=== PATIENT | female | born 1980 ===

== ENCOUNTER 2017-06-22 06:56 | Observation (INO) | payer MEDICAID, OTHER ==
--- NOTE | 2017-06-22 07:28 | ED PDOC ---
Arrival/HPI - General Chief Complaint: Syncope Time Seen by Provider: 06/22/17 07:04 Historian: Patient - History of Present Illness Narrative History of Present Illness (Text): 06/22/17 07:21 A 37 year old female, whose past medical history includes anxiety, presents to the emergency department after a syncopal episode at around 5AM. The patient states that she felt dizzy, vomited, and passed out for a short period of time. The patient states that she is unsure if the symptoms are related to new medications she has been taking: Topamax She states that she is mildly nauseous , but has no complaint of pain. The patient denies fevers, chills, headache, chest pain, shortness of breath, dyspnea on exertion, cough, abdominal pain, diarrhea, back pain, neck pain, urinary/bowel changes, or any other complaint. PMD: Dr. Palomares 06/22/17 09:47 Time/Duration: Other (5 AM) Symptom Onset: Sudden Symptom Course: Improving Activities at Onset: Rest, Light Context: Home Past Medical History - Provider Review Nursing Documentation Reviewed: Yes - Cardiac Hx Cardiac Disorders: No - Pulmonary Hx Asthma: Yes - Neurological Hx Headaches: Yes Hx Vertigo: Yes - HEENT Hx HEENT Disorder: No - Renal Hx Renal Disorder: No - Endocrine/Metabolic Hx Hypothyroidism: Yes - Integumentary Hx Dermatological Disorder: No - Musculoskeletal/Rheumatological Hx Musculoskeletal Disorders: No - Gastrointestinal Hx Gastritis: Yes - Genitourinary/Gynecological Hx Genitourinary Disorders: No - Psychiatric Hx Anxiety: Yes Hx Substance Use: No - Surgical History Hx Hysterectomy: Yes Hx Thyroidectomy: Yes Hx Tonsillectomy: Yes Family/Social History - Physician Review Nursing Documentation Reviewed: Yes Family/Social History: No Known Family HX Smoking Status: Never Smoked Hx Alcohol Use: No Hx Substance Use: No Allergies/Home Meds Allergies/Adverse Reactions: Allergies acetaminophen [From Percocet] Allergy (Verified 06/22/17 07:12) VOMITING morphine Allergy (Verified 06/22/17 07:12) VOMITING oxycodone [From Percocet] Allergy (Verified 06/22/17 07:12) VOMITING Home Medications: Home Meds Medication Instructions Recorded Confirmed Unobtainable 06/22/17 06/22/17 Review of Systems - Physician Review All systems were reviewed & negative as marked: Yes - Review of Systems Constitutional: absent: Fevers, Night Sweats ENT: absent: Sore Throat Respiratory: absent: SOB, Cough Cardiovascular: Syncope. absent: Chest Pain, [place] Gastrointestinal: Nausea, Vomiting. absent: Abdominal Pain, Stool Changes Genitourinary Female: absent: Urine Output Changes Musculoskeletal: absent: Back Pain, Neck Pain Neurological: Dizziness. absent: Headache Physical Exam Vital Signs Reviewed: Yes Vital Signs Temp Pulse Resp BP Pulse Ox 06/22/17 07:16 98.2 F 72 17 108/74 100 06/22/17 07:12 98.0 F 60 17 108/74 98 Temperature: Afebrile Blood Pressure: Normal Pulse: Regular Respiratory Rate: Normal Appearance: Positive for: Well-Appearing, Non-Toxic, Comfortable Pain Distress: None Mental Status: Positive for: Alert and Oriented X 3 - Systems Exam Head: Present: Atraumatic, Normocephalic Pupils: Present: PERRL Extroacular Muscles: Present: EOMI Conjunctiva: Present: Normal Mouth: Present: Moist Mucous Membranes Neck: Present: Normal Range of Motion Respiratory/Chest: Present: Clear to Auscultation, Good Air Exchange. No: Respiratory Distress, Accessory Muscle Use Cardiovascular: Present: Regular Rate and Rhythm, Normal S1, S2. No: Murmurs Abdomen: Present: Normal Bowel Sounds. No: Tenderness, Distention, Peritoneal Signs Back: Present: Normal Inspection Upper Extremity: Present: Normal Inspection. No: Cyanosis, Edema Lower Extremity: Present: Normal Inspection. No: Edema Neurological: Present: GCS=15, CN II-XII Intact, Speech Normal Skin: Present: Warm, Dry, Normal Color. No: Rashes Psychiatric: Present: Alert, Oriented x 3, Normal Insight, Normal Concentration Medical Decision Making ED Course and Treatment: 06/22/17 07:29 Impression: A 37 year old female presents to the emergency department for a syncopal episode at 5AM. In the emergency department, she currently feels mildly nauseous with no pain. Plan: -- Head CT -- EKG -- Chest X-ray -- Labs -- Urinalysis -- Zofran -- Reassess and disposition Progress Notes: EKG: Ordered, reviewed, and independently interpreted the EKG. Rate : 72 BPM Rhythm : NSR Interpretation : Nonspecific ST-T wave changes. Comparison : No previous EKG for comparison. CT HEAD WITHOUT CONTRAST Dictator : Violet Kerr MD Report Date : 06/22/2017 08:23:12 IMPRESSION: No acute intracranial abnormality. 06/22/17 08:57 pt witha bnormal ekg needs admission as per [facility] syncope rules 06/22/17 08:51: Case discussed in detail with Dr. Ricardo, will accept patient to his service. CHEST X-RAY Dictator : Violet Kerr MD Report Date : 06/22/2017 08:57:41 IMPRESSION: No active pulmonary disease. - Lab Interpretations Lab Results: 06/22/17 07:58 06/22/17 07:58 Lab Results 06/22/17 07:58: Urine HCG, Qual Negative 06/22/17 07:58: Sodium 138, Potassium 3.8, Chloride 104, Carbon Dioxide 22, Anion Gap 16, BUN 13, Creatinine 0.6 L, Est GFR ( Amer) > 60, Est GFR ( Non-Af Amer) > 60, Random Glucose 102, Calcium 9.5, Magnesium 2.0, Total Bilirubin 0.5, AST 24, ALT 30, Alkaline Phosphatase 68, Lactate Dehydrogenase 336, Total Creatine Kinase 104, Troponin I < 0.01, Total Protein 7.4, Albumin 4.5, Globulin 2.9, Albumin/Globulin Ratio 1.6 06/22/17 07:58: Urine Color Yellow, Urine Appearance Sl cloudy, Urine pH 8.0, Ur Specific [place] 1.015, Urine Protein Trace H, Urine Glucose (UA) Negative, Urine Ketones Negative, Urine Blood Trace-intact H, Urine Nitrate Negative, Urine Bilirubin Negative, Urine Urobilinogen 0.2, Ur Leukocyte Esterase Negative , Urine RBC 0 - 2, Urine WBC 0 - 2, Ur Epithelial Cells 4 - 5, Urine Bacteria Trace, Urine Other Mucus 06/22/17 07:58: PT 11.3, INR 1.03, APTT 26.3 06/22/17 07:58: WBC 8.5, RBC 4.40, Hgb 12.9, Hct 38.7, MCV 88.0, MCH 29.3, MCHC 33.3, RDW 13.1, Plt Count 405, MPV 9.9, Gran % 64.3, Lymph % (Auto) 25.0, [place] % (Auto) 7.0 H, Eos % (Auto) 3.5, Baso % (Auto) 0.2, Gran # 5.45, Lymph # 2.1, [place] # 0.6, Eos # 0.3, Baso # 0.02 I have reviewed the lab results: Yes - RAD Interpretation Radiology Orders: 06/22/17 07:19 HEAD W/O CONTRAST [CT] Stat CHEST PORTABLE [RAD] Stat - EKG Interpretation Interpreted by ED Physician: Yes Type: 12 lead EKG - Medication Orders Current Medication Orders: Discontinued Medications Ondansetron HCl (Zofran Inj) 4 mg IVP STAT STA Stop: 06/22/17 07:20 Last Admin: 06/22/17 07:45 Dose: 4 mg IVP Administration Document 06/22/17 07:45 IT (Rec: 06/22/17 07:49 IT [id number]) Charges for Administration # of IVP Administrations 1 - Scribe Statement The provider has reviewed the documentation as recorded by the Scribe Judy Mancera Provider Scribe Attestation: All medical record entries made by the Scribe were at my direction and personally dictated by me. I have reviewed the chart and agree that the record accurately reflects my personal performance of the history, physical exam, medical decision making, and the department course for this patient. I have also personally directed, reviewed, and agree with the discharge instructions and disposition. Disposition/Present on Arrival - Present on Arrival Any Indicators Present on Arrival: No History of DVT/PE: No History of Uncontrolled Diabetes: No Urinary Catheter: No History of Decub. Ulcer: No History Surgical Site Infection Following: None - Disposition Have Diagnosis and Disposition been Completed?: Yes Diagnosis: Syncope Disposition: HOSPITALIZED Disposition Time: 09:47 Patient Problems: Current Active Problems Problem Status Onset Syncope Acute Condition: STABLE
[2017-06-22 08:10] LABS: BASO # 0.02 K/mm3 (0.0-2.0); BASO % 0.2 % (0.0-3.0); EOS # 0.3 (0.0-0.7); EOS % 3.5 % (1.5-5.0); GRAN # 5.45 (1.4-6.5); GRAN % 64.3 % (50.0-68.0); HEMATOCRIT 38.7 % (36.0-48.0); LYMPH # 2.1 (1.2-3.4); MEAN CORPUSCULAR HEMOGLOBIN 29.3 pg (25.0-35.0); MEAN CORPUSCULAR HGB CONC 33.3 g/dl (31.0-37.0); MEAN PLATELET VOLUME 9.9 fl (7.0-11.0); MONO # 0.6 (0.1-0.6); RED CELL DISTRIBUTION WIDTH 13.1 % (11.5-14.5); WHITE BLOOD COUNT 8.5 10^3/ul (4.5-11.0)
[2017-06-22 08:11] LABS: URINE BILIRUBIN NEGATIVE (NEGATIVE); URINE BLOOD TRACE-INTACT (NEGATIVE); URINE GLUCOSE (UA) NEGATIVE (NEGATIVE); URINE KETONE NEGATIVE (NEGATIVE); URINE LEUKOCYTE ESTERASE NEGATIVE Leu/uL (NEGATIVE); URINE PROTEIN TRACE mg/dL (<30 mg/dL); URINE UROBILINOGEN 0.2 E.U./dL (<1 E.U./dL)
[2017-06-22 08:13] LABS: URINE APPEARANCE SL CLOUDY (CLEAR); URINE COLOR YELLOW (YELLOW)
[2017-06-22 08:18] LABS: INR 1.03 (0.93-1.08); PARTIAL THROMBOPLASTIN TIME 26.3 Seconds (25.1-36.5)
[2017-06-22 08:22] LABS: ALB/GLOB RATIO 1.6 (1.1-1.8); ALKALINE PHOSPHATASE 68 U/L (38-126); ALT/SGPT 30 U/L (7-56); AST/SGOT 24 U/L (14-36); BILIRUBIN,TOTAL 0.5 mg/dL (0.2-1.3); BLOOD UREA NITROGEN 13 mg/dL (7-21); CALCIUM 9.5 mg/dL (8.4-10.5); CARBON DIOXIDE 22 mmol/L (21-33); CHLORIDE 104 mmol/L (98-107); GFR AFRICAN-AMERICAN > 60; GLUCOSE,RANDOM 102 mg/dL (70-110); POTASSIUM 3.8 mmol/L (3.6-5.0); SODIUM 138 mmol/L (132-148); TOTAL PROTEIN 7.4 g/dL (5.8-8.3)
[2017-06-22 08:23] LABS: URINE BACTERIA TRACE (NEG); URINE RBC 0 - 2 /hpf (0-2); URINE WBC 0 - 2 /hpf (0-6)
--- NOTE | 2017-06-22 08:24 | CT ---
PROCEDURE: CT HEAD WITHOUT CONTRAST. HISTORY: Syncope COMPARISON: None available. TECHNIQUE: Axial computed tomography images were obtained through the head/brain without intravenous contrast. Radiation dose: Total exam DLP = 47.90 mGy-cm. This CT exam was performed using one or more of the following dose reduction techniques: Automated exposure control, adjustment of the mA and/or kV according to patient size, and/or use of iterative reconstruction technique. FINDINGS: HEMORRHAGE: No intracranial hemorrhage. BRAIN: Liu-white matter differentiation is preserved. There is no mass, mass effect or abnormal extra-axial fluid collection. VENTRICLES: The ventricles are normal in size, shape and configuration. CALVARIUM: There is no calvarial fracture or extracranial soft tissue swelling. PARANASAL SINUSES: Predominantly clear. MASTOID AIR CELLS: Predominantly clear. OTHER FINDINGS: None. IMPRESSION: No acute intracranial abnormality.
[2017-06-22 08:33] LABS: TROPONIN I < 0.01 ng/mL
--- NOTE | 2017-06-22 08:59 | RAD ---
HISTORY: Syncope COMPARISON: No prior. FINDINGS: LUNGS: The lungs are well inflated and clear. PLEURA: No significant pleural effusion identified, no pneumothorax apparent. CARDIOVASCULAR: Normal. OSSEOUS STRUCTURES: No significant abnormalities. VISUALIZED UPPER ABDOMEN: Normal. OTHER FINDINGS: None. IMPRESSION: No active pulmonary disease.
[2017-06-22] MEDS: Sodium Chloride 0.9% 1,000 ML IV SCH (10:16)
--- NOTE | 2017-06-22 13:18 | CP.PCM.HP ---
<Mane Marion - Last Filed: 06/22/17 14:49> History of Present Illness - History of Present Illness History of Present Illness: CC: Syncope LOC 37 year old female with history chronic headaches, fibromyalgia, Pituitary mass , paroxysmal atrial fibrillation presents to the [facility] emergency department for loss of consciousness and syncope with loss of bladder control that occurred this morning around 5am. She was just started on two new medications Duloxetiene and Topamax that was prescribed two days ago and took the first dose at 01:00 this morning. After taking the medication she described dizziness, slowing of the heart, chest pain that was squeezing in nature, an inability to breath. she attempted to drink and eat, however nothing improved. The patient does have a history of a pituitary tumor which she takes Cabergoline. The duloxetiene and Topamax was recently prescribed due to recent diagnosis of fibromyalgia and headaches. Patient had been receiving intramuscular injection for pain for the last two years. Patient recently describes changes in vision inability to see lateral zendejas and increased blurriness over the last year. Denies: Fevers, Chills, Diarrhea, numbness/tingling in extremities, sudden weight gain/weight loss, PMH: Pituitary mass, Fibromyalgia, chronic ALBARRAN, paroxysmal Afib, Uterine Fibroids , PSH: Fibroid, tubal ligation, hysterectomy, tonsil removal ALL: Acetaminophine, morphine, oxycodone SocialHx: Lives with and 3 children, occasional ETOH use, denies tobacco or recreational drug use PMD: Dr. Palomares Neuro: Dr. Doss Present on Admission - Present on Admission Any Indicators Present on Admission: No Review of Systems - Review of Systems All systems: reviewed and no additional remarkable complaints except - Constitutional Constitutional: As Per HPI Past Patient History - Past Social History Smoking Status: Never Smoked - CARDIAC Hx Cardiac Disorders: No - PULMONARY Hx Asthma: Yes - NEUROLOGICAL Hx Vertigo: Yes - HEENT Hx HEENT Problems: No - RENAL Hx Chronic Kidney Disease: No - ENDOCRINE/METABOLIC Hx Hypothyroidism: Yes - INTEGUMENTARY Hx Dermatological Problems: No - MUSCULOSKELETAL/RHEUMATOLOGICAL Hx Musculoskeletal Disorders: No - GASTROINTESTINAL Hx Gastritis: Yes - GENITOURINARY/GYNECOLOGICAL Hx Genitourinary Disorders: No - PSYCHIATRIC Hx Anxiety: Yes Hx Substance Use: No - SURGICAL HISTORY Hx Hysterectomy: Yes Hx Thyroidectomy: Yes Hx Tonsillectomy: Yes Meds Allergies/Adverse Reactions: Allergies Allergy/AdvReac Type Severity Reaction Status Date / Time acetaminophen [From Percocet] Allergy VOMITING Verified 06/22/17 11:59 morphine Allergy VOMITING Verified 06/22/17 11:59 oxycodone [From Percocet] Allergy VOMITING Verified 06/22/17 11:59 Physical Exam - Constitutional Appears: No Acute Distress - Head Exam Head Exam: ATRAUMATIC - Eye Exam Eye Exam: EOMI. absent: Scleral icterus - ENT Exam ENT Exam: Mucous Membranes Moist - Respiratory Exam Respiratory Exam: Clear to Auscultation Bilateral, NORMAL BREATHING PATTERN. absent: Accessory Muscle Use, Rales, Rhonchi, Wheezes, Respiratory Distress - Cardiovascular Exam Cardiovascular Exam: REGULAR RHYTHM, +S1, +S2. absent: Bradycardia, Tachycardia , Diastolic murmur, Systolic Murmur - GI/Abdominal Exam GI & Abdominal Exam: Soft. absent: Distended, Firm, Rigid, Tenderness - Extremities Exam Extremities exam: Positive for: normal inspection. Negative for: calf tenderness - Neurological Exam Neurological exam: Alert, CN II-XII Intact, Oriented x3 - Skin Skin Exam: Normal Color Results - Vital Signs Recent Vital Signs: Last Vital Signs Temp 98.2 F 06/22/17 10:31 Pulse 72 06/22/17 10:31 Resp 17 06/22/17 10:31 BP 125/78 06/22/17 10:31 Pulse Ox 98 06/22/17 10:31 - Labs Result Diagrams: 06/22/17 07:58 06/22/17 07:58 Labs: Laboratory Results - last 24 hr 06/22/17 06/22/17 10:12 11:44 Phosphorus 2.7 Urine Opiates Screen Negative Urine Methadone Screen Negative Ur Barbiturates Screen Negative Ur Phencyclidine Scrn Negative Ur Amphetamines Screen Negative U Benzodiazepines Scrn Negative U Oth Cocaine Metabols Negative U Cannabinoids Screen Negative Assessment & Plan - Assessment and Plan (Free Text) Assessment: 37M pmhx: anxiety, chronic headaches, pituitary tumor, fibromyalgia recently started taking two new medication w/ Syncope LOC possible seizure Trop x1 negative. Repeat trops pending EKG: NSR decreased ischemic changes in anteriolateral leads. Abnormal P wave Head CT w/o contrast: No acute changes Urine Tox screen negative Syncope vs Seizure Cardiology c/s- Dr. Costello- all recs appreciated Neurology c/s- Dr. Varma- all recs apprecaited repeat trops x 2 Echo final read pending f/u EEG Orthostatic pressure h/o Headaches Naproxen h/o Pituitary Tumor most recent measurement in August 3mm Neurology recs most likely follow up as outpatient PPX heparin/PTX <Brittni Ricardo - Last Filed: 06/22/17 16:45> Results - Vital Signs Recent Vital Signs: Last Vital Signs Temp 98.2 F 06/22/17 14:27 Pulse 72 06/22/17 14:27 Resp 17 06/22/17 14:27 BP 125/78 06/22/17 14:27 Pulse Ox 98 06/22/17 10:31 - Labs Result Diagrams: 06/22/17 07:58 06/22/17 07:58 Labs: Laboratory Results - last 24 hr 06/22/17 06/22/17 06/22/17 10:12 10:30 11:44 Phosphorus 2.7 Lactate Dehydrogenase Total Creatine Kinase Troponin I Free T4 1.17 TSH 3rd Generation 1.62 Urine Opiates Screen Negative Urine Methadone Screen Negative Ur Barbiturates Screen Negative Ur Phencyclidine Scrn Negative Ur Amphetamines Screen Negative U Benzodiazepines Scrn Negative U Oth Cocaine Metabols Negative U Cannabinoids Screen Negative 06/22/17 14:10 Phosphorus Lactate Dehydrogenase 337 Total Creatine Kinase 97 Troponin I < 0.01 Free T4 TSH 3rd Generation Urine Opiates Screen Urine Methadone Screen Ur Barbiturates Screen Ur Phencyclidine Scrn Ur Amphetamines Screen U Benzodiazepines Scrn U Oth Cocaine Metabols U Cannabinoids Screen Attending/Attestation - Attestation I have personally seen and examined this patient.: Yes I have fully participated in the care of the patient.: Yes I have reviewed all pertinent clinical information: Yes Notes (Text): 06/22/17 16:32 37 year old female with past medical history of pituitary tumor, fibromyalgia, anxiety and chronic headaches who presented this morning after syncopal episode. CT head showed now acute findings. EKG showed TWI in V3-5. Urine drug screen was negative. Neurology evaluation was appreciated. EEG was done with pending report. MRI brain is ordered. Echocardiogram and serial cardiac enzymes are ordered as well. Brittni Ricardo MD Hospitalist.
[2017-06-22 14:14] LABS: FREE T4 1.17 ng/dL (0.78-2.19)
[2017-06-22 14:28] LABS: THYROID STIMULATING HORMONE 1.62 mIU/mL (0.46-4.68)
[2017-06-22] MEDS: Naproxen 275 mg Tab PO PRN ×2 (14:39→22:10)
[2017-06-22 14:44] LABS: TROPONIN I < 0.01 ng/mL
[2017-06-22] MEDS ORDERED: Influenza Vaccine 60 mcg/0.5 mL SYR (4YR UP) IM ONE (14:56)
[2017-06-22] MEDS ORDERED: Pneumococcal 23-Valent Vaccine IM ONE (14:56)
[2017-06-22 14:57] VITALS: BMI 27.9
--- NOTE | 2017-06-22 15:02 | CP.PCM.CON ---
History of Present Illness - History of Present Illness History of Present Illness: Neurology consult note for Dr. Varma's service - Arlette Crawford PGY2 HPI: Patient is a 37 year-old female with past medical history of chronic headaches, fibromyalgia, pituitary mass and paroxysmal atrial fibrillation that [place] [facility] [place]. She reported that at approximately 5am she had lost consciousness as well as bladder function. She reported having been prescribed two new medications duloxetine and topamax which was prescribed 2 days prior. She reported that shortly after taking her first dose at 1am she began to experience dizziness, pressure-like chest pain and dyspnea. She reported no alleviating or exacerbating symptoms. She has a history of a pituitary mass and noted changes in her vision specifically to the lateral zendejas and increased blurriness over the last year. She denied fever, chills, cough, focal weakness, numbness, tingling, abdominal pain, nausea, vomiting. Neurology consulted for evaluation of syncope. 12point ROS as per HPI above otherwise negative PMH: Pituitary mass, Fibromyalgia, chronic ALBARRAN, paroxysmal Afib, Uterine Fibroids , PSH: Fibroid, tubal ligation, hysterectomy, tonsil removal ALL: Acetaminophine, morphine, oxycodone Social Hx: Lives with and 3 children, occasional ETOH use, denies tobacco or recreational drug use Family Hx: Non-contributory PMD: Dr. Palomares Past Patient History - Past Social History Smoking Status: Never Smoked - CARDIAC Hx Cardiac Disorders: No - PULMONARY Hx Asthma: Yes - NEUROLOGICAL Hx Vertigo: Yes - HEENT Hx HEENT Problems: No - RENAL Hx Chronic Kidney Disease: No - ENDOCRINE/METABOLIC Hx Hypothyroidism: Yes - INTEGUMENTARY Hx Dermatological Problems: No - MUSCULOSKELETAL/RHEUMATOLOGICAL Hx Musculoskeletal Disorders: No - GASTROINTESTINAL Hx Gastritis: Yes - GENITOURINARY/GYNECOLOGICAL Hx Genitourinary Disorders: No - PSYCHIATRIC Hx Anxiety: Yes Hx Substance Use: No - SURGICAL HISTORY Hx Hysterectomy: Yes Hx Thyroidectomy: Yes Hx Tonsillectomy: Yes Meds Allergies/Adverse Reactions: Allergies Allergy/AdvReac Type Severity Reaction Status Date / Time acetaminophen [From Percocet] Allergy VOMITING Verified 06/22/17 11:59 morphine Allergy VOMITING Verified 06/22/17 11:59 oxycodone [From Percocet] Allergy VOMITING Verified 06/22/17 11:59 - Medications Medications: Current Medications Heparin Sodium (Porcine) (Heparin) 5,000 units SC Q12 SHAGGY PRN Reason: Protocol Sodium Chloride (Sodium Chloride 0.9%) 1,000 mls @ 80 mls/hr IV .[id number] [facility] Last Admin: 06/22/17 10:16 Dose: 80 mls/hr Naproxen (Anaprox) 275 mg PO Q6 PRN PRN Reason: Pain, moderate (4-7) Last Admin: 06/22/17 14:39 Dose: 275 mg Ondansetron HCl (Zofran Tab) 4 mg PO Q4 PRN PRN Reason: Nausea/Vomiting Last Admin: 06/22/17 14:43 Dose: 4 mg Pantoprazole Sodium (Protonix Inj) 40 mg IVP DAILY [facility] Physical Exam - Constitutional Appears: No Acute Distress - Head Exam Head Exam: ATRAUMATIC, NORMAL INSPECTION, NORMOCEPHALIC - Eye Exam Eye Exam: EOMI Pupil Exam: PERRL - ENT Exam ENT Exam: Mucous Membranes Moist - Respiratory Exam Respiratory Exam: Clear to Auscultation Bilateral. absent: Rales, Rhonchi, Wheezes - Cardiovascular Exam Cardiovascular Exam: +S1, +S2. absent: Gallop, Rubs - GI/Abdominal Exam GI & Abdominal Exam: Soft. absent: Distended, Firm, Guarding, Tenderness - Extremities Exam Extremities exam: Positive for: normal inspection - Neurological Exam Neurological exam: Alert, CN II-XII Intact, Oriented x3 Additional comments: EOMI PERRL CN2-12 grossly intact motor function grossly intact Results - Vital Signs Recent Vital Signs: Last Vital Signs Temp 98.2 F 06/22/17 10:31 Pulse 72 06/22/17 10:31 Resp 17 06/22/17 10:31 BP 125/78 06/22/17 10:31 Pulse Ox 98 06/22/17 10:31 - Labs Result Diagrams: 06/22/17 07:58 06/22/17 07:58 Labs: Laboratory Results - last 24 hr 06/22/17 06/22/17 06/22/17 10:12 10:30 11:44 Phosphorus 2.7 Lactate Dehydrogenase Total Creatine Kinase Troponin I Free T4 1.17 TSH 3rd Generation 1.62 Urine Opiates Screen Negative Urine Methadone Screen Negative Ur Barbiturates Screen Negative Ur Phencyclidine Scrn Negative Ur Amphetamines Screen Negative U Benzodiazepines Scrn Negative U Oth Cocaine Metabols Negative U Cannabinoids Screen Negative 06/22/17 14:10 Phosphorus Lactate Dehydrogenase 337 Total Creatine Kinase 97 Troponin I < 0.01 Free T4 TSH 3rd Generation Urine Opiates Screen Urine Methadone Screen Ur Barbiturates Screen Ur Phencyclidine Scrn Ur Amphetamines Screen U Benzodiazepines Scrn U Oth Cocaine Metabols U Cannabinoids Screen Assessment & Plan - Assessment and Plan (Free Text) Plan: 37 year-old female with history of chronic headaches, fibromyalgia, pituitary mass and paroxysmal atrial fibrillation presented s/p syncopal episode. Neurology consulted for evaluation. 1. Syncope r/o seizure disorder 2. Pituitary mass 3. Chronic headaches 4. Fibromyalgia 5. Paroxysmal afib -Head CT reviewed; revealed no acute intracranial abnormalities -EEG completed and is pending read -MRI Brain with contrast ordered for further evaluation -Carotid doppler pending -Urine tox negative -TSH within normal limits -Continue present medical management as per primary team; we will follow up MRI and EEG results -Further recommendations as per attending, Dr. Varma Patient seen and case discussed with attending, Dr. Varma
--- NOTE | 2017-06-22 18:03 | US ---
PROCEDURE: Bilateral carotid artery duplex ultrasound HISTORY: Carotid stenosis PHYSICIAN(S): Сергей Santos MD. TECHNIQUE: Duplex sonography and color-flow Doppler were used to evaluate the carotid bifurcations and limited segments of the vertebral arteries bilaterally. FINDINGS: There is minimal intimal- medial thickening noted at the carotid bifurcations bilaterally. The peak systolic velocity in the proximal right internal carotid artery is 99 cm/sec. This corresponds to a 0-19 percent proximal right ICA stenosis. Normal systolic velocities are noted in the proximal right external carotid artery. There is antegrade flow in the right vertebral artery. The peak systolic velocity in the proximal left internal carotid artery is 93 cm/sec. This corresponds to a 0-19 percent proximal left ICA stenosis. Normal systolic velocities are noted in the proximal left external carotid artery. There is antegrade flow in the left vertebral artery. IMPRESSION: 1. Bilateral 0-19 percent proximal ICA stenoses. 2. Antegrade flow in both vertebral arteries.
[2017-06-22] MEDS ORDERED: Iohexol 350 MG/100 ML VIAL ONE (20:31)
--- NOTE | 2017-06-22 22:00 | CT ---
EXAM: CT Angiography Chest With Intravenous Contrast CLINICAL HISTORY: 37 years old, female; Pain; Chest pressure; Additional info: Elevated d-dimer TECHNIQUE: Axial computed tomographic angiography images of the chest with intravenous contrast using pulmonary embolism protocol. All CT scans at this facility use one or more dose reduction techniques, viz.: automated exposure control; ma/kV adjustment per patient size (including targeted exams where dose is matched to indication; i.e. head); or iterative reconstruction technique. MIP reconstructed images were created and reviewed. Coronal and sagittal reformatted images were created and reviewed. CONTRAST: 100 mL of OMNI administered intravenously. COMPARISON: DX - CHEST PORTABLE 2017-06-22 08:14 FINDINGS: Limitations: Motion artifact - mild. Pulmonary arteries: No definite pulmonary embolism. Aorta: No aneurysm. No dissection. Lungs: No consolidation. Pleural space: No significant effusion. No pneumothorax. Heart: No cardiomegaly. No significant pericardial effusion. Bones/joints: No acute fracture. No dislocation. Soft tissues: Unremarkable. Lymph nodes: No pathologically enlarged lymph nodes. IMPRESSION: 1. No definite CT evidence of pulmonary embolism.
[2017-06-22 22:09] LABS: TROPONIN I < 0.01 ng/mL
--- NOTE | 2017-06-23 01:58 | CON ---
DATE: CARDIOLOGY CONSULTATION REASON FOR CONSULTATION: Syncope. HISTORY OF PRESENT ILLNESS: The patient is a 37-year-old female originally from [facility], was diagnosed with pituitary adenoma some 2 to 3 years ago. The patient presented because of syncopal episode. The patient describes experiencing headache last night and about 1:00 a.m. she took one of her headache medicine; however, she could not sleep until around 5:00 a.m. when she feel nauseous, went to vomit, felt dizzy and went to her , collapsed on the floor; however, the was able to hold her and the patient sustained no injuries. The patient did report feeling her heart beat slow prior to her fainting. SOCIAL HISTORY: The patient is nonsmoker. MEDICATIONS: Anaprox 275 mg q. 6 hours, heparin 5000 units subcutaneous twice a day, Zofran 4 mg p.o. q. 4 hours p.r.n., Protonix 40 mg intravenously once a day. The patient's home medications include, Topamax 50 mg twice a day, omeprazole 40 mg once a day, Claritin 10 mg once a day, Cymbalta 30 mg once a day, Xanax 0.25 mg twice a day, albuterol inhaler q. 4 hours. PHYSICAL EXAMINATION: GENERAL: The patient is young middle-aged female, does not appears to be in any distress. VITAL SIGNS: Blood pressure 125/78, heart rate 72, temperature 98.2, respirations 17. HEENT: Normocephalic. NECK: No JVD. CHEST: Clear. HEART: S1 and S2 regular. EXTREMITIES: No edema or calf tenderness. LABORATORY DATA: SMA-7 is within normal limit except for creatinine 0.6. Two sets of troponin are negative. TSH and free T4 are within normal limits. PT, PTT, and INR are within normal limits. Urine drug screen is negative. CT scan without contrast, no acute intracranial abnormality. EKG revealed sinus rhythm with nonspecific anterior and inferior T wave changes. ASSESSMENT: 1. Syncopal episode. 2. Abnormal electrocardiogram with evidence of nonspecific anterior and inferior T wave changes. 3. History of pituitary adenoma. RECOMMENDATIONS: Continue current normal saline and p.r.n. oral Zofran. Continue IV Protonix. I will review the echocardiographic study that was performed today. Consider brain MRI. Obtain stat serum D-dimer. Babatunde Costello MD [facility] # [id number]
[2017-06-23 06:34] VITALS: O2SAT 100
[2017-06-23 06:53] LABS: ALB/GLOB RATIO 1.5 (1.1-1.8); ALKALINE PHOSPHATASE 62 U/L (38-126); ALT/SGPT 29 U/L (7-56); AST/SGOT 22 U/L (14-36); BILIRUBIN,TOTAL 0.7 mg/dL (0.2-1.3); BLOOD UREA NITROGEN 10 mg/dL (7-21); CALCIUM 8.8 mg/dL (8.4-10.5); CARBON DIOXIDE 26 mmol/L (21-33); CHLORIDE 107 mmol/L (98-107); GFR AFRICAN-AMERICAN > 60; GLUCOSE,RANDOM 92 mg/dL (70-110); POTASSIUM 3.7 mmol/L (3.6-5.0); SODIUM 140 mmol/L (132-148); TOTAL PROTEIN 6.1 g/dL (5.8-8.3)
[2017-06-23 07:07] LABS: HEMATOCRIT 34.9 % (36.0-48.0); MEAN CELL VOLUME 88.4 fl (80.0-105.0); MEAN CORPUSCULAR HEMOGLOBIN 30.1 pg (25.0-35.0); MEAN CORPUSCULAR HGB CONC 34.1 g/dl (31.0-37.0); MEAN PLATELET VOLUME 9.9 fl (7.0-11.0); RED CELL DISTRIBUTION WIDTH 13.4 % (11.5-14.5); WHITE BLOOD COUNT 7.1 10^3/ul (4.5-11.0)
[2017-06-23] MEDS: Sodium Chloride 0.9% 1,000 ML IV SCH ×2 (07:08→13:44)
--- NOTE | 2017-06-23 08:47 | CARD ---
APPROVED REPORT EXAM: Two-dimensional and M-mode echocardiogram with Doppler and color Doppler. Other Information Quality : AverageRhythm : INDICATION Syncope 2D DIMENSIONS Left Atrium (2D)3.4 (1.6-4.0cm)IVSd1.0 (0.7-1.1cm) LVDd3.4 (3.9-5.9cm)PWd0.8 (0.7-1.1cm) LVDs2.4 (2.5-4.0cm)FS (%) 27.8 % LVEF (%)55.0 (>50%) M-Mode DIMENSIONS Aortic Root2.70 (2.2-3.7cm)Aortic Cusp Exc.1.80 (1.5-2.0cm) Aortic Valve AoV Peak Wkakbhfp992.0cm/s Mitral Valve MV E Qeebhaea05.7cm/sMV A Smrqbcwk63.7cm/sE/A ratio0.9 TDI E/Lateral E'0.0E/Medial E'0.0 Tricuspid Valve TR Peak Allodmih138id/sRAP [id number] Peak Gr.12mmHg [id number] LEFT VENTRICLE The left ventricle is normal size. There is normal left ventricular wall thickness. The left ventricular function is normal. The left ventricular ejection fraction is within the normal range. There is normal LV segmental wall motion. RIGHT VENTRICLE The right ventricle is normal size. ATRIA The left atrium size is normal. The right atrium size is normal. The interatrial septum is intact with no evidence for an atrial septal defect. AORTIC VALVE The aortic valve is normal in structure. MITRAL VALVE The mitral valve is normal in structure. TRICUSPID VALVE The tricuspid valve is normal in structure. There is trace tricuspid regurgitation. PULMONIC VALVE The pulmonary valve is normal in structure. GREAT VESSELS The aortic root is normal in size. PERICARDIAL EFFUSION There is no pericardial effusion. <Conclusion> The left ventricle is normal size. There is normal left ventricular wall thickness. The left ventricular function is normal.
--- NOTE | 2017-06-23 08:59 | CARD ---
APPROVED REPORT EKG Measurement Heart [id number] <Conclusion> Normal sinus rhythm STTW changes c/w ischemia
[2017-06-23] MEDS: Naproxen 275 mg Tab PO PRN ×2 (09:08→15:18)
--- NOTE | 2017-06-23 15:29 | CP.PCM.PN ---
<TREVOR VARGHESE - Last Filed: 06/23/17 15:26> Subjective - Date & Time of Evaluation Date of Evaluation: 06/23/17 Time of Evaluation: 15:26 - Subjective Subjective: Medicine Progress Note: Pt seen and examined at bedside. Pt denied any acute overnight events. Pt denied CP, SOB, nausea, vomiting, diarrhea, constipation, fever, chills, abdominal pain, [place], and dizziness. Objective - Vital Signs/Intake and Output Vital Signs (last 24 hours): Temp Pulse Resp BP Pulse Ox 98.8 F 81 20 100/64 100 06/23/17 12:00 06/23/17 14:00 06/23/17 12:00 06/23/17 12:00 06/23/17 06:00 Intake and Output: 06/23/17 06/23/17 06:59 18:59 Intake Total 1520 Output Total 5 Balance 1515 - Medications Medications: Current Medications Heparin Sodium (Porcine) (Heparin) 5,000 units SC Q12 SHAGGY PRN Reason: Protocol Last Admin: 06/23/17 09:09 Dose: 5,000 units Sodium Chloride (Sodium Chloride 0.9%) 1,000 mls @ 80 mls/hr IV .[id number] [facility] Last Admin: 06/23/17 13:44 Dose: 80 mls/hr Naproxen (Anaprox) 275 mg PO Q6 PRN PRN Reason: Pain, moderate (4-7) Last Admin: 06/23/17 09:08 Dose: 275 mg Ondansetron HCl (Zofran Tab) 4 mg PO Q4 PRN PRN Reason: Nausea/Vomiting Last Admin: 06/22/17 14:43 Dose: 4 mg Pantoprazole Sodium (Protonix Inj) 40 mg IVP DAILY [facility] Last Admin: 06/23/17 09:08 Dose: 40 mg - Labs Labs: 06/23/17 06:00 06/23/17 06:00 PT 11.3 SECONDS (9.4-12.5) 06/22/17 07:58 INR 1.03 (0.93-1.08) 06/22/17 07:58 APTT 30.9 Seconds (25.1-36.5) 06/23/17 06:00 - Constitutional Appears: No Acute Distress - Head Exam Head Exam: ATRAUMATIC, NORMOCEPHALIC - Eye Exam Eye Exam: EOMI, PERRL - ENT Exam ENT Exam: Mucous Membranes Moist - Neck Exam Neck Exam: Full ROM. absent: Lymphadenopathy, Tenderness, Thyromegaly - Respiratory Exam Respiratory Exam: Clear to Ausculation Bilateral. absent: Rales, Rhonchi, Wheezes - Cardiovascular Exam Cardiovascular Exam: RRR, +S1, +S2. absent: Diastolic murmur, Gallop, Rubs, Murmur - GI/Abdominal Exam GI & Abdominal Exam: Soft. absent: Distended, Guarding, Rigid, Tenderness, Mass , Rebound - Extremities Exam Extremities Exam: Normal Inspection - Neurological Exam Neurological Exam: Alert, Awake, Oriented x3 - Psychiatric Exam Psychiatric exam: Normal Affect, Normal Mood - Skin Skin Exam: Dry, Intact, Normal Color, Warm Assessment and Plan - Assessment and Plan (Free Text) Assessment: 37 yo female with pmh anxiety, chronic headaches, pituitary tumor, fibromyalgia admitted for evaluation and treatment for syncope, LOC, and possible seizure. Plan: Syncope vs Seizure - EKG: NSR decreased ischemic changes in anteriolateral leads. Abnormal P wave - Head CT w/o contrast: No acute changes - Urine Tox screen negative - F/u MRI, ativan will be given pre-MRI for anxiety - Cardiology c/s- Dr. Costello- all recs appreciated - Neurology c/s- Dr. Varma- all recs apprecaited EEG cleared by neuro - Troponin negative x3 - Echo showed LVEF 55% - Carotid US negative - Orthostatics negative - Cont IVF Elevated D-dimer - CT angiogram negative - No LE US for now as no clinical suspicion for DVT h/o Headaches - Naproxen h/o Pituitary Tumor - most recent measurement in August 3mm - Neurology recs - most likely follow up as outpatient GI/DVT PPX - heparin/PTX Pt seen and discussed in detail with Dr. Ricardo. Rakesh Varghese, PGY1 <Brittni Ricardo - Last Filed: 06/23/17 16:06> Objective - Vital Signs/Intake and Output Vital Signs (last 24 hours): Temp Pulse Resp BP Pulse Ox 98.8 F 81 20 100/64 100 06/23/17 12:00 06/23/17 14:00 06/23/17 12:00 06/23/17 12:00 06/23/17 06:00 Intake and Output: 06/23/17 06/23/17 06:59 18:59 Intake Total 1520 Output Total 5 Balance 1515 - Medications Medications: Current Medications Heparin Sodium (Porcine) (Heparin) 5,000 units SC Q12 SHAGGY PRN Reason: Protocol Last Admin: 06/23/17 09:09 Dose: 5,000 units Sodium Chloride (Sodium Chloride 0.9%) 1,000 mls @ 80 mls/hr IV .[id number] [facility] Last Admin: 06/23/17 13:44 Dose: 80 mls/hr Naproxen (Anaprox) 275 mg PO Q6 PRN PRN Reason: Pain, moderate (4-7) Last Admin: 06/23/17 15:18 Dose: 275 mg Ondansetron HCl (Zofran Tab) 4 mg PO Q4 PRN PRN Reason: Nausea/Vomiting Last Admin: 06/22/17 14:43 Dose: 4 mg Pantoprazole Sodium (Protonix Inj) 40 mg IVP DAILY [facility] Last Admin: 06/23/17 09:08 Dose: 40 mg - Labs Labs: 06/23/17 06:00 06/23/17 06:00 PT 11.3 SECONDS (9.4-12.5) 06/22/17 07:58 INR 1.03 (0.93-1.08) 06/22/17 07:58 APTT 30.9 Seconds (25.1-36.5) 06/23/17 06:00 Attending/Attestation - Attestation I have personally seen and examined this patient.: Yes I have fully participated in the care of the patient.: Yes I have reviewed all pertinent clinical information, including history, physical exam and plan: Yes Notes (Text): 06/23/17 16:04 37 year old female with past medical history of pituitary tumor, fibromyalgia, anxiety and chronic headaches who presented after syncopal episode. CT head showed now acute findings. Echocardiogram and carotid dopplers were reviewed as above. Serial cardiac enzymes were negative. Cardiology and neurology evaluation were appreciated. EEG was done with report pending. MRI brain is also pending. D-dimer was elevated however CT angio was negative for PE. Possible d/c planning pending MRI study. Brittni Ricardo MD Hospitalist.
--- NOTE | 2017-06-23 16:16 | PN ---
DATE: SUBJECTIVE: The patient denies any dizziness. PHYSICAL EXAMINATION: VITAL SIGNS: Blood pressure 100/64, heart rate 91, temperature 98.8 and respirations 20. HEENT: Normocephalic. CHEST: Clear. HEART: S1 and S2 regular. EXTREMITIES: No edema. LABORATORY DATA: Hemoglobin and hematocrit 11.9 and 34.9, white count and platelet count are within normal limits. Chest CT angio; no evidence of pulmonary embolus. ASSESSMENT: 1. Syncopal episode. 2. Fibromyalgia. 3. History of pituitary adenoma. RECOMMENDATIONS: Continue current subcutaneous heparin and p.r.n. oral Zofran. The patient will undergo brain MRI. Babatunde Costello MD
[2017-06-24] MEDS: Sodium Chloride 0.9% 1,000 ML IV SCH ×2 (01:20→13:29)
[2017-06-24] MEDS ORDERED: Gadodiamide 287 MG/ML VIAL (15ML) IV ONE (11:29)
--- NOTE | 2017-06-24 14:26 | PN ---
DATE: SUBJECTIVE: The patient denies any headache or dizziness. PHYSICAL EXAMINATION: VITAL SIGNS: Blood pressure of 101/63, heart rate of 56, temperature of 98.8,and respirations of 14. HEENT: Normocephalic. CHEST: Clear. HEART: S1 and S2 regular. EXTREMITIES: No edema. ASSESSMENT: 1. Syncopal episode. 2. Sinus bradycardia. 3. History of pituitary adenoma. RECOMMENDATIONS: Continue subcutaneous heparin, IV Protonix and normal saline effusion. The patient will undergo brain MRI today. Babatunde Costello MD
[2017-06-24 17:14] VITALS: BP 108/70; RESP 18; TEMP 99.8
--- NOTE | 2017-06-24 17:28 | MRI ---
PROCEDURE: MRI BRAIN WITH AND WITHOUT CONTRAST HISTORY: syncope; hx of pituitary mass COMPARISON: Head CT without contrast 06/22/2017. TECHNIQUE: Multiplanar, multisequence MR images of the brain were obtained with and without intravenous contrast enhancement. FINDINGS: HEMORRHAGE: None DWI: No evidence of an acute or early subacute infarction. BRAIN PARENCHYMA: The sella is nearly empty. There is no discrete mass identified within a quite small appearing pituitary gland. The sella is normal in size. The stalk is slightly deviated toward the right. A basal cistern optic chiasm appear within normal limits. No signal abnormality is seen within the jacob or white matter structures above or below the tentorium including throughout the brainstem. There is no acute intracranial finding appreciable this time. ENHANCEMENT: No abnormal intracranial enhancement. VENTRICLES: Unremarkable. No hydrocephalus. CRANIUM: Unremarkable. ORBITS: Grossly unremarkable. PARANASAL SINUSES/MASTOIDS: Clear VASCULAR SYSTEM: Skull base flow voids intact. OTHER FINDINGS: None . IMPRESSION: Near empty sella. No definitive sellar mass is identified. Enhancement throughout the pituitary gland appears homogeneous. Remainder of the examination is unremarkable including post gadolinium enhanced imaging. If prior brain MRI can be retrieved for comparison, then an addendum this report can be provided.
--- NOTE | 2017-06-24 18:19 | CP.PCM.DIS ---
<TREVOR VARGHESE - Last Filed: 06/24/17 18:05> Provider - Provider Date of Admission: 06/22/17 08:51 Attending physician: Brittni Ricardo MD Consults: Neuro: Avani Cardio: Trang Time Spent in preparation of Discharge (in minutes): 40 Hospital Course - Lab Results Lab Results: Micro Results 06/22/17 20:20 Urine Urine Culture - Final <10,000 CFU/ML. MULTIPLE SPECIES. PROBABLE CONTAMINATION. Most Recent Lab Values WBC 7.1 10^3/ul (4.5-11.0) 06/23/17 06:00 RBC 3.95 10^6/uL (3.5-6.1) 06/23/17 06:00 Hgb 11.9 g/dL (12.0-16.0) L 06/23/17 06:00 Hct 34.9 % (36.0-48.0) L 06/23/17 06:00 MCV 88.4 fl (80.0-105.0) 06/23/17 06:00 MCH 30.1 pg (25.0-35.0) 06/23/17 06:00 MCHC 34.1 g/dl (31.0-37.0) 06/23/17 06:00 RDW 13.4 % (11.5-14.5) 06/23/17 06:00 Plt Count 357 10^3/uL (120.0-450.0) 06/23/17 06:00 MPV 9.9 fl (7.0-11.0) 06/23/17 06:00 Gran % 64.3 % (50.0-68.0) 06/22/17 07:58 Lymph % (Auto) 25.0 % (22.0-35.0) 06/22/17 07:58 [place] % (Auto) 7.0 % (1.0-6.0) H 06/22/17 07:58 Eos % (Auto) 3.5 % (1.5-5.0) 06/22/17 07:58 Baso % (Auto) 0.2 % (0.0-3.0) 06/22/17 07:58 Gran # 5.45 (1.4-6.5) 06/22/17 07:58 Lymph # 2.1 (1.2-3.4) 06/22/17 07:58 [place] # 0.6 (0.1-0.6) 06/22/17 07:58 Eos # 0.3 (0.0-0.7) 06/22/17 07:58 Baso # 0.02 K/mm3 (0.0-2.0) 06/22/17 07:58 PT 11.3 SECONDS (9.4-12.5) 06/22/17 07:58 INR 1.03 (0.93-1.08) 06/22/17 07:58 APTT 30.9 Seconds (25.1-36.5) 06/23/17 06:00 D-Dimer, Quantitative 381 ng/mL (0-243) H 06/22/17 18:03 Sodium 140 mmol/L (132-148) 06/23/17 06:00 Potassium 3.7 mmol/L (3.6-5.0) 06/23/17 06:00 Chloride 107 mmol/L (98-107) 06/23/17 06:00 Carbon Dioxide 26 mmol/L (21-33) 06/23/17 06:00 Anion Gap 11 (10-20) 06/23/17 06:00 BUN 10 mg/dL (7-21) 06/23/17 06:00 Creatinine 0.7 mg/dL (0.7-1.2) 06/23/17 06:00 Est GFR ( Amer) > 60 06/23/17 06:00 Est GFR (Non-Af Amer) > 60 06/23/17 06:00 Random Glucose 92 mg/dL (70-110) 06/23/17 06:00 Calcium 8.8 mg/dL (8.4-10.5) 06/23/17 06:00 Phosphorus 2.7 mg/dL (2.5-4.5) 06/22/17 10:12 Magnesium 2.0 mg/dL (1.7-2.2) 06/22/17 07:58 Total Bilirubin 0.7 mg/dL (0.2-1.3) 06/23/17 06:00 AST 22 U/L (14-36) 06/23/17 06:00 ALT 29 U/L (7-56) 06/23/17 06:00 Alkaline Phosphatase 62 U/L (38-126) 06/23/17 06:00 Lactate Dehydrogenase 270 U/L (333-699) L 06/22/17 21:45 Total Creatine Kinase 85 U/L (35-230) 06/22/17 21:45 Troponin I < 0.01 ng/mL 06/22/17 21:45 Total Protein 6.1 g/dL (5.8-8.3) 06/23/17 06:00 Albumin 3.7 g/dL (3.0-4.8) 06/23/17 06:00 Globulin 2.5 gm/dL 06/23/17 06:00 Albumin/Globulin Ratio 1.5 (1.1-1.8) 06/23/17 06:00 Free T4 1.17 ng/dL (0.78-2.19) 06/22/17 10:30 TSH 3rd Generation 1.62 mIU/mL (0.46-4.68) 06/22/17 10:30 Urine Color Yellow (YELLOW) 06/22/17 07:58 Urine Appearance Sl cloudy (CLEAR) 06/22/17 07:58 Urine pH 8.0 (4.7-8.0) 06/22/17 07:58 Ur Specific [place] 1.015 (1.005-1.035) 06/22/17 07:58 Urine Protein Trace mg/dL (<30 mg/dL) H 06/22/17 07:58 Urine Glucose (UA) Negative mg/dL (NEGATIVE) 06/22/17 07:58 Urine Ketones Negative mg/dL (NEGATIVE) 06/22/17 07:58 Urine Blood Trace-intact (NEGATIVE) H 06/22/17 07:58 Urine Nitrate Negative (NEGATIVE) 06/22/17 07:58 Urine Bilirubin Negative (NEGATIVE) 06/22/17 07:58 Urine Urobilinogen 0.2 E.U./dL (<1 E.U./dL) 06/22/17 07:58 Ur Leukocyte Esterase Negative [place]/uL (NEGATIVE) 06/22/17 07:58 Urine RBC 0 - 2 /hpf (0-2) 06/22/17 07:58 Urine WBC 0 - 2 /hpf (0-6) 06/22/17 07:58 Ur Epithelial Cells 4 - 5 /hpf (0-5) 06/22/17 07:58 Urine Bacteria Trace (NEG) 06/22/17 07:58 Urine Other Mucus 06/22/17 07:58 Urine HCG, Qual Negative (NEGATIVE) 06/22/17 07:58 Urine Opiates Screen Negative (NEGATIVE) 06/22/17 11:44 Urine Methadone Screen Negative (NEGATIVE) 06/22/17 11:44 Ur Barbiturates Screen Negative (NEGATIVE) 06/22/17 11:44 Ur Phencyclidine Scrn Negative (NEGATIVE) 06/22/17 11:44 Ur Amphetamines Screen Negative (NEGATIVE) 06/22/17 11:44 U Benzodiazepines Scrn Negative (NEGATIVE) 06/22/17 11:44 U Oth Cocaine Metabols Negative (NEGATIVE) 06/22/17 11:44 U Cannabinoids Screen Negative (NEGATIVE) 06/22/17 11:44 - Hospital Course Hospital Course: 37 year old female with history chronic headaches, fibromyalgia, Pituitary mass , paroxysmal atrial fibrillation presents to the [facility] emergency department for loss of consciousness and syncope with loss of bladder control that occurred this morning around 5am. She was just started on two new medications Duloxetiene and Topamax that was prescribed two days ago and took the first dose on day of admission. After taking the medication she described dizziness, slowing of the heart, chest pain that was squeezing in nature, an inability to breath. she attempted to drink and eat, however nothing improved. The patient does have a history of a pituitary tumor which she takes Cabergoline. The duloxetiene and Topamax was recently prescribed due to recent diagnosis of fibromyalgia and headaches. Patient had been receiving intramuscular injection for pain for the last two years. Patient recently describes changes in vision inability to see lateral zendejas and increased blurriness over the last year. In the ED, labs and imaging were obtained. D- dimer was elevated. CT angiogram was ordered and showed no evidence of PE. LE duplex was considered, however patient showed no signs of clinically for DVT. EKG showed NSR decreased ischemic changes in anterolateral leads. Head CT showed no acute changes. Pt was admitted evaluation and treatment for syncope, LOC, and possible seizure. Cardiology was consulted. Echo showed LVEF 55%. Carotid US was negative. Orthostatics were negative. Neurology was consulted. EEG was ordered and was cleared by neurology. MRI was ordered, which showed near empty sella, no definitive sellar mass identified, and pituitary gland appears homogenous. Today, the patient was seen and examined at bedside. Pt denied any acute overnight events. Pt denied has near syncopal events, ALBARRAN, dizziness, or fatigue. Pt denied CP, SOB, nausea, vomiting, diarrhea, chills, fever, or abdominal pain. As the patient is hemodynamically stable and neurogenic and cardiogenic etiologies of her syncope and possible seizure had been ruled out, the patient was discharged. Patient was advised to follow up with her PMD, neuro, and endocrinology as an outpatient for further workup. The patient was instructed to resume her medications. Discharge Exam - Head Exam Head Exam: ATRAUMATIC, NORMOCEPHALIC - Eye Exam Eye Exam: EOMI, PERRL - ENT Exam ENT Exam: Mucous Membranes Moist - Neck Exam Neck exam: Full Rom - Respiratory Exam Respiratory Exam: Clear to PA & Lateral. absent: Rales, Rhonchi, Wheezes, Stridor - Cardiovascular Exam Cardiovascular Exam: RRR, +S1, +S2. absent: Diastolic murmur, Gallop, Rubs, Systolic Murmur - GI/Abdominal Exam GI & Abdominal Exam: Soft. absent: Distended, Guarding, Mass, Rebound, Tenderness - Extremities Exam Extremities exam: normal inspection - Back Exam Back exam: NORMAL INSPECTION - Neurological Exam Neurological exam: Alert, CN II-XII Intact, Oriented x3 Additional comments: No changes in vision - Psychiatric Exam Psychiatric exam: Normal Affect, Normal Mood - Skin Skin Exam: Dry, Intact, Normal Color, Warm Discharge Plan - Follow Up Plan Condition: STABLE Disposition: HOME/ ROUTINE Instructions: Syncope (ED) Additional Instructions: 1. Follow up with PMD within 1 week 2. Follow up with neurology within 1 week 3. Follow up with endocrinology within 1 week 4. Take medications as prescribed 5. Return to ED if symptoms worsen RN NOTE: MD team authorizes discharge to home. Follow the above instructions for follow- up visits. If you experience any difficult breathing, unusual bleeding, fever and chills, severe pain, passing out episodes, change in metal status or any worsening of your condition, contact your primary medical doctor or the nearest emergency department immediately. Please check the room for all your belongings prior to leaving. Referrals: Sarah Hassan MD [Medical Doctor] - Dexter Varma MD [Staff Provider] - <Brittni Ricardo - Last Filed: 06/24/17 18:45> Provider - Provider Date of Admission: 06/22/17 08:51 Attending physician: Brittni Ricardo MD Hospital Course - Lab Results Lab Results: Micro Results 06/22/17 20:20 Urine Urine Culture - Final <10,000 CFU/ML. MULTIPLE SPECIES. PROBABLE CONTAMINATION. Most Recent Lab Values WBC 7.1 10^3/ul (4.5-11.0) 06/23/17 06:00 RBC 3.95 10^6/uL (3.5-6.1) 06/23/17 06:00 Hgb 11.9 g/dL (12.0-16.0) L 06/23/17 06:00 Hct 34.9 % (36.0-48.0) L 06/23/17 06:00 MCV 88.4 fl (80.0-105.0) 06/23/17 06:00 MCH 30.1 pg (25.0-35.0) 06/23/17 06:00 MCHC 34.1 g/dl (31.0-37.0) 06/23/17 06:00 RDW 13.4 % (11.5-14.5) 06/23/17 06:00 Plt Count 357 10^3/uL (120.0-450.0) 06/23/17 06:00 MPV 9.9 fl (7.0-11.0) 06/23/17 06:00 Gran % 64.3 % (50.0-68.0) 06/22/17 07:58 Lymph % (Auto) 25.0 % (22.0-35.0) 06/22/17 07:58 [place] % (Auto) 7.0 % (1.0-6.0) H 06/22/17 07:58 Eos % (Auto) 3.5 % (1.5-5.0) 06/22/17 07:58 Baso % (Auto) 0.2 % (0.0-3.0) 06/22/17 07:58 Gran # 5.45 (1.4-6.5) 06/22/17 07:58 Lymph # 2.1 (1.2-3.4) 06/22/17 07:58 [place] # 0.6 (0.1-0.6) 06/22/17 07:58 Eos # 0.3 (0.0-0.7) 06/22/17 07:58 Baso # 0.02 K/mm3 (0.0-2.0) 06/22/17 07:58 PT 11.3 SECONDS (9.4-12.5) 06/22/17 07:58 INR 1.03 (0.93-1.08) 06/22/17 07:58 APTT 30.9 Seconds (25.1-36.5) 06/23/17 06:00 D-Dimer, Quantitative 381 ng/mL (0-243) H 06/22/17 18:03 Sodium 140 mmol/L (132-148) 06/23/17 06:00 Potassium 3.7 mmol/L (3.6-5.0) 06/23/17 06:00 Chloride 107 mmol/L (98-107) 06/23/17 06:00 Carbon Dioxide 26 mmol/L (21-33) 06/23/17 06:00 Anion Gap 11 (10-20) 06/23/17 06:00 BUN 10 mg/dL (7-21) 06/23/17 06:00 Creatinine 0.7 mg/dL (0.7-1.2) 06/23/17 06:00 Est GFR ( Amer) > 60 06/23/17 06:00 Est GFR (Non-Af Amer) > 60 06/23/17 06:00 Random Glucose 92 mg/dL (70-110) 06/23/17 06:00 Calcium 8.8 mg/dL (8.4-10.5) 06/23/17 06:00 Phosphorus 2.7 mg/dL (2.5-4.5) 06/22/17 10:12 Magnesium 2.0 mg/dL (1.7-2.2) 06/22/17 07:58 Total Bilirubin 0.7 mg/dL (0.2-1.3) 06/23/17 06:00 AST 22 U/L (14-36) 06/23/17 06:00 ALT 29 U/L (7-56) 06/23/17 06:00 Alkaline Phosphatase 62 U/L (38-126) 06/23/17 06:00 Lactate Dehydrogenase 270 U/L (333-699) L 06/22/17 21:45 Total Creatine Kinase 85 U/L (35-230) 06/22/17 21:45 Troponin I < 0.01 ng/mL 06/22/17 21:45 Total Protein 6.1 g/dL (5.8-8.3) 06/23/17 06:00 Albumin 3.7 g/dL (3.0-4.8) 06/23/17 06:00 Globulin 2.5 gm/dL 06/23/17 06:00 Albumin/Globulin Ratio 1.5 (1.1-1.8) 06/23/17 06:00 Free T4 1.17 ng/dL (0.78-2.19) 06/22/17 10:30 TSH 3rd Generation 1.62 mIU/mL (0.46-4.68) 06/22/17 10:30 Urine Color Yellow (YELLOW) 06/22/17 07:58 Urine Appearance Sl cloudy (CLEAR) 06/22/17 07:58 Urine pH 8.0 (4.7-8.0) 06/22/17 07:58 Ur Specific [place] 1.015 (1.005-1.035) 06/22/17 07:58 Urine Protein Trace mg/dL (<30 mg/dL) H 06/22/17 07:58 Urine Glucose (UA) Negative mg/dL (NEGATIVE) 06/22/17 07:58 Urine Ketones Negative mg/dL (NEGATIVE) 06/22/17 07:58 Urine Blood Trace-intact (NEGATIVE) H 06/22/17 07:58 Urine Nitrate Negative (NEGATIVE) 06/22/17 07:58 Urine Bilirubin Negative (NEGATIVE) 06/22/17 07:58 Urine Urobilinogen 0.2 E.U./dL (<1 E.U./dL) 06/22/17 07:58 Ur Leukocyte Esterase Negative [place]/uL (NEGATIVE) 06/22/17 07:58 Urine RBC 0 - 2 /hpf (0-2) 06/22/17 07:58 Urine WBC 0 - 2 /hpf (0-6) 06/22/17 07:58 Ur Epithelial Cells 4 - 5 /hpf (0-5) 06/22/17 07:58 Urine Bacteria Trace (NEG) 06/22/17 07:58 Urine Other Mucus 06/22/17 07:58 Urine HCG, Qual Negative (NEGATIVE) 06/22/17 07:58 Urine Opiates Screen Negative (NEGATIVE) 06/22/17 11:44 Urine Methadone Screen Negative (NEGATIVE) 06/22/17 11:44 Ur Barbiturates Screen Negative (NEGATIVE) 06/22/17 11:44 Ur Phencyclidine Scrn Negative (NEGATIVE) 06/22/17 11:44 Ur Amphetamines Screen Negative (NEGATIVE) 06/22/17 11:44 U Benzodiazepines Scrn Negative (NEGATIVE) 06/22/17 11:44 U Oth Cocaine Metabols Negative (NEGATIVE) 06/22/17 11:44 U Cannabinoids Screen Negative (NEGATIVE) 06/22/17 11:44 Attending/Attestation - Attestation I have personally seen and examined this patient.: Yes I have fully participated in the care of the patient.: Yes I have reviewed all pertinent clinical information, including history, physical exam and plan: Yes Notes (Text): 06/24/17 18:43 37 year old female with past medical history of pituitary tumor, fibromyalgia, anxiety and chronic headaches who presented after syncopal episode. CT head showed now acute findings. Echocardiogram and carotid dopplers were reviewed as above. Serial cardiac enzymes were negative. She had EEG and MRI brain as well. She was seen by cardiology and neurology. D-dimer was elevated however CT angio was negative for PE. Patient is discharged home to follow up with her pmd. Follow up with neurology and endocrinology. Brittni Ricardo MD Hospitalist.
[2017-06-24 18:50] VITALS: PULSE 73
== END 2017-06-24 18:57 | disposition home or self-care (01) ==
LOC: ED 06:56 → ERH 08:51 → 2RSO 10:28
PROVIDERS: ADMIT Internal Medicine; ATTEND Internal Medicine
DX: R55 Syncope and collapse (principal); R00.1 Bradycardia, unspecified; M79.7 Fibromyalgia; I48.0 Paroxysmal atrial fibrillation; R51 Headache; E03.9 Hypothyroidism, unspecified; F41.9 Anxiety disorder, unspecified; D35.2 Benign neoplasm of pituitary gland; J45.909 Unspecified asthma, uncomplicated; Z90.710 Acquired absence of both cervix and uterus
CPT/HCPCS: 36415; 70450; 70553; 71010; 71275; 80053; 80324; 80345; 80346; 80349; 80353; 80358; 80361; 81001; 82550; 83615; 83735; 83992; 84100; 84439; 84443; 84484; 84703; 85025; 85027; 85378; 85610; 85730; 87086; 93005; 93306; 93880; 95812; 96374; 99285; A9579; C9113; G0378; J1644; J2060; J2405; J7040; Q9967

== ENCOUNTER 2017-09-23 22:41 | Emergency (ER) | payer MEDICAID, OTHER ==
[2017-09-23 22:41] VITALS: BMI 27.9
--- NOTE | 2017-09-23 23:06 | ED PDOC ---
Arrival/HPI - General Chief Complaint: Medical Clearance Time Seen by Provider: 09/23/17 23:00 Historian: Patient - History of Present Illness Narrative History of Present Illness (Text): 09/23/17 23:00 37 y/o female, pmh including paroxymal a.fibb, psychiatric history including anxiety/depression, allergic to percocet and morphine, c/o palpitation/chest pain for the past 2 days. Pt. stated that she has been having palpitation with the chest pain, associated with the anxiety that's causing her to feel numbness all over body, had similar episode before which told this is anxiety and which she has been having close follow up with her own pmd Dr. Nur as well. Pt. has no headache, no night sweat, no rash, no numbness or tingling, no other medical or psychological complaints. Past Medical History - Provider Review Nursing Documentation Reviewed: Yes - Cardiac Hx Cardiac Disorders: No - Pulmonary Hx Respiratory Disorders: Yes Hx Asthma: Yes - Neurological Hx Neurological Disorder: Yes Hx Vertigo: Yes - HEENT Hx HEENT Disorder: No - Renal Hx Renal Disorder: No - Endocrine/Metabolic Hx Endocrine Disorders: Yes Hx Hypothyroidism: Yes - Hematological/Oncological Hx Blood Disorders: No - Integumentary Hx Dermatological Disorder: No - Musculoskeletal/Rheumatological Hx Musculoskeletal Disorders: No - Gastrointestinal Hx Gastrointestinal Disorders: Yes Hx Gastritis: Yes - Genitourinary/Gynecological Hx Genitourinary Disorders: No - Psychiatric Hx Psychophysiologic Disorder: Yes Hx Anxiety: Yes Hx Substance Use: No - Surgical History Hx Hysterectomy: Yes Hx Thyroidectomy: Yes Hx Tonsillectomy: Yes Family/Social History - Physician Review Nursing Documentation Reviewed: Yes Family/Social History: Unknown Family HX Smoking Status: Never Smoked Hx Alcohol Use: No Hx Substance Use: No Allergies/Home Meds Allergies/Adverse Reactions: Allergies acetaminophen [From Percocet] Allergy (Verified 09/25/17 11:02) VOMITING morphine Allergy (Verified 09/25/17 11:02) VOMITING oxycodone [From Percocet] Allergy (Verified 09/25/17 11:02) VOMITING Home Medications: Home Meds Medication Instructions Recorded Confirmed Aspirin [Adult Aspirin Regimen] 81 mg PO .QOTHERDAY 09/24/17 09/25/17 Cabergoline 0.5 mg PO QWK 09/24/17 09/25/17 Sertraline [Zoloft] 50 mg PO DAILY 09/24/17 09/25/17 Alprazolam [Xanax] 0 mg PO PRN PRN 09/25/17 09/25/17 Review of Systems - Review of Systems Constitutional: absent: Fatigue, Fevers, Night Sweats Eyes: absent: Vision Changes ENT: absent: Hearing Changes Respiratory: absent: SOB, Cough Cardiovascular: Chest Pain, Palpitations. absent: Syncope Gastrointestinal: absent: Abdominal Pain, Nausea, Vomiting Musculoskeletal: absent: Arthralgias, Back Pain Skin: absent: Rash, Pruritis Neurological: absent: Headache, Dizziness Psychiatric: Anxiety. absent: Depression, Suicidal Ideation Physical Exam Vital Signs Reviewed: Yes Vital Signs Temp Pulse Resp BP Pulse Ox 09/24/17 02:13 130/82 09/24/17 02:06 98.0 F 76 22 98 09/23/17 23:35 85 16 134/80 100 09/23/17 22:54 97.8 F 85 18 141/90 100 Temperature: Afebrile Blood Pressure: Normal Pulse: Regular Respiratory Rate: Normal Appearance: Positive for: Well-Appearing, Non-Toxic, Comfortable Pain Distress: None Mental Status: Positive for: Alert and Oriented X 3 - Systems Exam Head: Present: Atraumatic, Normocephalic Pupils: Present: PERRL Extroacular Muscles: Present: EOMI Conjunctiva: Present: Normal Mouth: Present: Moist Mucous Membranes Neck: Present: Normal Range of Motion Respiratory/Chest: Present: Clear to Auscultation, Good Air Exchange. No: Respiratory Distress, Accessory Muscle Use, Wheezes, Decreased Breath Sounds, Rales, Retracting, Rhonchi, Tachypneic, Tender to Palpation Cardiovascular: Present: Regular Rate and Rhythm, Normal S1, S2. No: Murmurs Abdomen: Present: Normal Bowel Sounds. No: Tenderness, Distention, Peritoneal Signs, Rebound, Guarding Back: Present: Normal Inspection Upper Extremity: Present: Normal Inspection. No: Cyanosis, Edema Lower Extremity: Present: Normal Inspection. No: Edema Neurological: Present: GCS=15, CN II-XII Intact, Speech Normal, Motor Func Grossly Intact, Gait Normal, Memory Normal Skin: Present: Warm, Dry, Normal Color. No: Rashes Psychiatric: Present: Alert, Oriented x 3, Normal Insight, Normal Concentration Medical Decision Making ED Course and Treatment: 09/23/17 23:13 -labs/ua/alcohol/drug screen/thyroid profile -ekg -cxr -IVF -observe and reassess 09/24/17 01:21 -EKG: NSR @ 81 BPM, no acute ST or T wave changes compared with previous ekg. -Chest xray show no active disease -Labs are non-significant except wbc 12.4 (likely stress induced, no fever or chills), K 2.9 (potassium choride 40meq po ordered), Mg 1.4 (MgSu IV ordered) -TSH within normal limit. -UA is negative for UTI -Drug screen show no acute findings -Troponin is negative -Pt. feels completely relief with the xanax, eating and drinking well, non- anxious, refused the psychiatric care, not homicidal or suicidal ideation. -Discharge home with education on stay hydrated, bed rest, follow up with your own pmd and eyewear consultant within 2 days, return to the ER for any new or worsening signs or symptoms. - Lab Interpretations Lab Results: 09/23/17 23:20 09/23/17 23:20 Lab Results 09/24/17 00:15: Urine Opiates Screen Negative, Urine Methadone Screen Negative, Ur Barbiturates Screen Negative, Ur Phencyclidine Scrn Negative, Ur Amphetamines Screen Negative, U Benzodiazepines Scrn Negative, U Oth Cocaine Metabols Negative, U Cannabinoids Screen Negative 09/24/17 00:15: Urine Color Straw, Urine Appearance Clear, Urine pH 6.0, Ur Specific [place] 1.010, Urine Protein Negative, Urine Glucose (UA) Negative, Urine Ketones Trace H, Urine Blood Small H, Urine Nitrate Negative, Urine Bilirubin Negative, Urine Urobilinogen 0.2, Ur Leukocyte Esterase Negative, Urine RBC 0 - 2, Urine WBC 0 - 2, Ur Epithelial Cells 1 - 3, Urine Bacteria Rare 09/23/17 23:20: WBC 12.4 H D, RBC 4.31, Hgb 12.5, Hct 37.7, MCV 87.5, MCH 29.0, MCHC 33.2, RDW 13.2, Plt Count 406, MPV 10.2, Gran % 66.8, Lymph % (Auto) 26.7, [place] % (Auto) 4.7, Eos % (Auto) 1.6, Baso % (Auto) 0.2, Gran # 8.28 H, Lymph # 3.3, [place] # 0.6, Eos # 0.2, Baso # 0.03 09/23/17 23:20: Free T4 1.08, TSH 3rd Generation 1.65, Beta HCG, Quant < 2.39, Alcohol, Quantitative < 10 09/23/17 23:20: Sodium 137, Potassium 2.9 L* D, Chloride 101, Carbon Dioxide 21 , Anion Gap 18, BUN 12, Creatinine 0.6 L, Est GFR ( Amer) > 60, Est GFR ( Non-Af Amer) > 60, Random Glucose 126 H, Calcium 10.4, Magnesium 1.4 L, Total Bilirubin 0.5, AST 30, ALT 31, Alkaline Phosphatase 69, Lactate Dehydrogenase 321 L, Total Creatine Kinase 78, Troponin I < 0.01, Total Protein 7.2, Albumin 4.4, Globulin 2.8, Albumin/Globulin Ratio 1.6, Free T3 pg/mL 4.08 09/23/17 23:20: D-Dimer, Quantitative 233 - RAD Interpretation Radiology Orders: 09/23/17 23:09 CHEST PORTABLE [RAD] Stat no active pulmonary disease Building Components Designer: Radiologist - EKG Interpretation EKG Interpretation (Text): 09/24/17 00:52 -EKG: NSR @ 81 BPM, no acute ST or T wave changes compared with previous ekg. Interpreted by ED Physician: Yes Type: 12 lead EKG - Medication Orders Current Medication Orders: Discontinued Medications Alprazolam (Xanax) 0.5 mg PO STAT STA PRN Reason: Protocol Stop: 09/24/17 00:51 Last Admin: 09/24/17 01:06 Dose: 0.5 mg Magnesium Sulfate 2 gm/ Sodium (Chloride) 104 mls @ 102 mls/hr IVPB ONCE ONE Stop: 09/24/17 01:16 Last Admin: 09/24/17 00:53 Dose: 102 mls/hr eMAR Start Stop Document 09/24/17 00:53 VERONICA (Rec: 09/24/17 00:53 [place]ON[place] [facility] [id number] Intravenous Solution Start Date 09/24/17 Start Time 00:53 Potassium Chloride (K-Dur 20 Meq Er Tab) 40 meq PO STAT STA Stop: 09/24/17 00:16 Last Admin: 09/24/17 00:52 Dose: 40 meq - PA / CASINO WORKER / Resident Statement MD/DO has reviewed & agrees with the documentation as recorded. Disposition/Present on Arrival - Present on Arrival Any Indicators Present on Arrival: No History of DVT/PE: No History of Uncontrolled Diabetes: No Urinary Catheter: No History of Decub. Ulcer: No History Surgical Site Infection Following: None - Disposition Have Diagnosis and Disposition been Completed?: Yes Diagnosis: Panic attack, Electrolyte imbalance Disposition: HOME/ ROUTINE Disposition Time: 00:57 Patient Plan: Discharge Condition: IMPROVED Additional Instructions: -Discharge home with education on stay hydrated, bed rest, follow up with your own pmd and eyewear consultant within 2 days, return to the ER for any new or worsening signs or symptoms. Referrals: Tiffanie Paloamres MD [Primary Care Provider] - Follow up with primary Babatunde Costello MD [Staff Provider] - Follow up with primary Forms: WORK NOTE
[2017-09-23 23:52] LABS: BASO # 0.03 K/mm3 (0.0-2.0); BASO % 0.2 % (0.0-3.0); EOS # 0.2 (0.0-0.7); EOS % 1.6 % (1.5-5.0); GRAN # 8.28 (1.4-6.5); GRAN % 66.8 % (50.0-68.0); HEMOGLOBIN 12.5 g/dL (12.0-16.0); LYMPH # 3.3 (1.2-3.4); LYMPH % 26.7 % (22.0-35.0); MEAN CELL VOLUME 87.5 fl (80.0-105.0); MEAN CORPUSCULAR HGB CONC 33.2 g/dl (31.0-37.0); MEAN PLATELET VOLUME 10.2 fl (7.0-11.0); MONO # 0.6 (0.1-0.6); MONO % 4.7 % (1.0-6.0); RBC 4.31 10^6/uL (3.5-6.1); RED CELL DISTRIBUTION WIDTH 13.2 % (11.5-14.5); WHITE BLOOD COUNT 12.4 10^3/ul (4.5-11.0)
[2017-09-24 00:12] LABS: ALB/GLOB RATIO 1.6 (1.1-1.8); ALBUMIN 4.4 g/dL (3.0-4.8); ALT/SGPT 31 U/L (7-56); AST/SGOT 30 U/L (14-36); BLOOD UREA NITROGEN 12 mg/dL (7-21); CALCIUM 10.4 mg/dL (8.4-10.5); GFR AFRICAN-AMERICAN > 60; GFR NON-AFRICAN AMERICAN > 60; MAGNESIUM 1.4 mg/dL (1.7-2.2)
[2017-09-24 00:15] LABS: TROPONIN I < 0.01 ng/mL
[2017-09-24] MEDS ORDERED: Potassium Chloride 20 mEq ER Tab PO STA (00:15)
[2017-09-24] MEDS ORDERED: Magnesium Sulfate 2 GM in Sodium Chloride 0.9% 100 ML IVPB ONE (00:15)
[2017-09-24 00:20] LABS: FREE T4 1.08 ng/dL (0.78-2.19)
[2017-09-24 00:33] LABS: URINE BILIRUBIN NEGATIVE (NEGATIVE); URINE BLOOD SMALL (NEGATIVE); URINE GLUCOSE (UA) NEGATIVE (NEGATIVE); URINE LEUKOCYTE ESTERASE NEGATIVE Leu/uL (NEGATIVE); URINE NITRATE NEGATIVE (NEGATIVE); URINE PROTEIN NEGATIVE mg/dL (<30 mg/dL); URINE UROBILINOGEN 0.2 E.U./dL (<1 E.U./dL)
[2017-09-24 00:35] LABS: URINE APPEARANCE CLEAR (CLEAR); URINE COLOR STRAW (YELLOW)
[2017-09-24 00:52] LABS: URINE BACTERIA RARE (NEG); URINE RBC 0 - 2 /hpf (0-2); URINE WBC 0 - 2 /hpf (0-6)
[2017-09-24 01:19] LABS: BARBITURATES, UR NEGATIVE (NEGATIVE); BENZODIAZEPINES, UR NEGATIVE (NEGATIVE); PHENCYCLIDINE, UR NEGATIVE (NEGATIVE)
[2017-09-24 01:28] LABS: OPIATES, UR NEGATIVE (NEGATIVE)
[2017-09-24 02:12] VITALS: PULSE 76; RESP 22; TEMP 98; O2SAT 98
[2017-09-24 02:13] VITALS: BP 130/82
--- NOTE | 2017-09-24 08:38 | RAD ---
HISTORY: medical clearance COMPARISON: 06/22/2017. FINDINGS: LUNGS: The lungs are well inflated and clear. PLEURA: No significant pleural effusion identified, no pneumothorax apparent. CARDIOVASCULAR: Normal. OSSEOUS STRUCTURES: No significant abnormalities. VISUALIZED UPPER ABDOMEN: Normal. OTHER FINDINGS: None. IMPRESSION: No active pulmonary disease.
--- NOTE | 2017-09-24 17:21 | CARD ---
APPROVED REPORT EKG Measurement Heart [id number] <Conclusion> Normal sinus rhythm T wave abnormality, consider inferior ischemia Abnormal ECG
== END 2017-09-24 02:14 | disposition home or self-care (01) ==
LOC: ED 22:41
DX: F41.0 Panic disorder [episodic paroxysmal anxiety] (principal); E87.8 Other disorders of electrolyte and fluid balance, not elsewhere classified
CPT/HCPCS: 71045; 80053; 80320; 80324; 80345; 80346; 80349; 80353; 80358; 80361; 81001; 82550; 83615; 83735; 83992; 84439; 84443; 84481; 84484; 84702; 85025; 85378; 93005; 96374; 99284; J3475

== ENCOUNTER 2017-09-25 10:53 | Emergency (ER) | payer OTHER ==
[2017-09-25 11:02] VITALS: BMI 29.9
[2017-09-25 11:30] VITALS: RESP 18; TEMP 98.3
[2017-09-25 11:46] LABS: BASO # 0.02 K/mm3 (0.0-2.0); BASO % 0.1 % (0.0-3.0); EOS % 0.2 % (1.5-5.0); GRAN # 11.47 (1.4-6.5); GRAN % 77.9 % (50.0-68.0); HEMOGLOBIN 13.1 g/dL (12.0-16.0); LYMPH # 2.6 (1.2-3.4); LYMPH % 17.7 % (22.0-35.0); MEAN CELL VOLUME 87.2 fl (80.0-105.0); MEAN CORPUSCULAR HEMOGLOBIN 29.3 pg (25.0-35.0); MEAN CORPUSCULAR HGB CONC 33.6 g/dl (31.0-37.0); MONO # 0.6 (0.1-0.6); MONO % 4.1 % (1.0-6.0); RBC 4.47 10^6/uL (3.5-6.1); RED CELL DISTRIBUTION WIDTH 13.8 % (11.5-14.5); WHITE BLOOD COUNT 14.7 10^3/ul (4.5-11.0)
[2017-09-25 11:55] LABS: ACETAMINOPHEN < 10.0 ug/ml (10.0-20.0); SALICYLATE < 1 mg/dL (2.0-20.0)
[2017-09-25 12:06] LABS: URINE BILIRUBIN NEGATIVE (NEGATIVE); URINE BLOOD SMALL (NEGATIVE); URINE GLUCOSE (UA) NEGATIVE (NEGATIVE); URINE LEUKOCYTE ESTERASE NEGATIVE Leu/uL (NEGATIVE); URINE NITRATE NEGATIVE (NEGATIVE); URINE PROTEIN NEGATIVE mg/dL (<30 mg/dL); URINE UROBILINOGEN 0.2 E.U./dL (<1 E.U./dL)
[2017-09-25 12:09] LABS: URINE APPEARANCE CLEAR (CLEAR); URINE COLOR STRAW (YELLOW)
[2017-09-25 12:21] LABS: URINE BACTERIA FEW (NEG); URINE EPITHELIAL CELLS 0 - 2 /hpf (0-5); URINE RBC 0 - 2 /hpf (0-2); URINE WBC 0 - 2 /hpf (0-6)
--- NOTE | 2017-09-25 12:23 | ED PDOC ---
Arrival/HPI - General Chief Complaint: Anxiety Time Seen by Provider: 09/25/17 11:12 Historian: Patient - History of Present Illness Narrative History of Present Illness (Text): 09/25/17 12:15 37-year-old female with a history of anxiety presents today with anxiety attack. Patient states for the past 3 days she's been having anxiety attacks and was in the emergency room in [place] as well as in [place]. Patient states today she went to her psychiatrist today and waited an hour to be seen but they were unable to see her today but scheduled her for an appointment tomorrow. Patient states she ran out of her Xanax and has been having increased stress in the house and has been having continued panic attacks. Patient complaining of urinary frequency. Complaining of tingling sensation in the hands bilaterally and perioral paresthesias. She denies URI symptoms. Denies abdominal pain. No nausea or vomiting. Time/Duration: Other (3 days) Symptom Course: Intermittent, Worsening Severity Level: Mild Past Medical History - Provider Review Nursing Documentation Reviewed: Yes - Travel History Have you recently traveled outside [place] w/in the past 3 mons?: No - Infectious Disease Hx of Infectious Diseases: None - Cardiac Hx Cardiac Disorders: No - Pulmonary Hx Respiratory Disorders: Yes Hx Asthma: Yes - Neurological Hx Neurological Disorder: Yes Hx Vertigo: Yes - HEENT Hx HEENT Disorder: No - Renal Hx Renal Disorder: No - Endocrine/Metabolic Hx Endocrine Disorders: Yes Hx Hypothyroidism: Yes - Hematological/Oncological Hx Blood Disorders: No - Integumentary Hx Dermatological Disorder: No - Musculoskeletal/Rheumatological Hx Musculoskeletal Disorders: No - Gastrointestinal Hx Gastrointestinal Disorders: Yes Hx Gastritis: Yes - Genitourinary/Gynecological Hx Genitourinary Disorders: No - Psychiatric Hx Psychophysiologic Disorder: Yes Hx Anxiety: Yes Hx Substance Use: No - Surgical History Hx Hysterectomy: Yes Hx Thyroidectomy: Yes Hx Tonsillectomy: Yes - Anesthesia Hx Anesthesia: Yes Hx Anesthesia Reactions: No Family/Social History - Physician Review Nursing Documentation Reviewed: Yes Family/Social History: Unknown Family HX Smoking Status: Never Smoked Hx Alcohol Use: No Hx Substance Use: No Allergies/Home Meds Allergies/Adverse Reactions: Allergies acetaminophen [From Percocet] Allergy (Verified 09/25/17 11:02) VOMITING morphine Allergy (Verified 09/25/17 11:02) VOMITING oxycodone [From Percocet] Allergy (Verified 09/25/17 11:02) VOMITING Home Medications: Home Meds Medication Instructions Recorded Confirmed Aspirin [Adult Aspirin Regimen] 81 mg PO .QOTHERDAY 09/24/17 09/25/17 Cabergoline 0.5 mg PO QWK 09/24/17 09/25/17 Sertraline [Zoloft] 50 mg PO DAILY 09/24/17 09/25/17 Alprazolam [Xanax] 0 mg PO PRN PRN 09/25/17 09/25/17 Review of Systems - Review of Systems Constitutional: Fatigue. absent: Fevers Respiratory: SOB. absent: Cough Cardiovascular: Chest Pain, Palpitations Gastrointestinal: absent: Abdominal Pain, Nausea, Vomiting Genitourinary Female: Dysuria, Frequency. absent: Hematuria Musculoskeletal: absent: Arthralgias, Back Pain, Neck Pain Skin: absent: Rash, Pruritis Neurological: absent: Headache, Dizziness Psychiatric: Anxiety. absent: Depression, Suicidal Ideation Physical Exam Vital Signs Reviewed: Yes Vital Signs Temp Pulse Resp BP Pulse Ox 09/25/17 13:09 67 18 122/76 98 09/25/17 11:24 98.3 F 108 H 18 134/91 H 100 Temperature: Afebrile Blood Pressure: Normal Pulse: Tachycardic Respiratory Rate: Tachypneic (hyperventilating) Appearance: Positive for: Well-Appearing, Non-Toxic, Comfortable Pain Distress: None Mental Status: Positive for: Alert and Oriented X 3, other (ANXIOUS) - Systems Exam Head: Present: Atraumatic Mouth: Present: Moist Mucous Membranes Pharnyx: Present: Normal Nose (External): Present: Atraumatic Nose (Internal): Present: Normal Inspection Neck: Present: Normal Range of Motion, Trachea Midline Respiratory/Chest: Present: Clear to Auscultation, Good Air Exchange. No: Respiratory Distress, Accessory Muscle Use Cardiovascular: Present: Tachycardic. No: Murmurs Abdomen: No: Tenderness, Distention, Rebound, Guarding Back: Present: Normal Inspection Upper Extremity: Present: Normal ROM Lower Extremity: Present: Normal ROM Neurological: Present: GCS=15, Speech Normal Skin: Present: Warm, Dry, Normal Color. No: Rashes Psychiatric: Present: Alert, Oriented x 3, Anxious Medical Decision Making ED Course and Treatment: 09/25/17 12:53 37-year-old female with a history of anxiety presents hyperventilating complaining of anxiety attack. Patient is requesting Xanax. Patient was able to control her breathing. Feeling better. denies cp or sob at present time. Patient is nontoxic resting comfortably with family at bedside CBC WNL CMP WNL Tylenol WNL Salicylate WNL Alcohol level WNL Urine drug screen wnl UA; small blood, no leukocytes; cxr: wnl ekg sinus tachycardia at [address] depressions unchanged from previous EKG reviewed by dr. BRYAN. pt was given xanax po. pt is medically cleared for PES evaluation Patient was seen and evaluated by PES screener: cornelia Pt reassessment; pt feeling much better; vitals stable; pt with UTI symptoms; dysuria and frequency; will treat for UTI. i spoke with the patients PMD in depth regarding the case; the patient has f/u appointment tomorrow in the office. we have agreed to give the patient 2 xanax to hold her over until her appointment tomorrow. I have had a long in-depth conversation with the patient and her multiple family members. I have stressed the importance of follow-up with a primary care physician tomorrow as well as a psychiatrist. I have also stressed the importance of follow-up with her neurologist and steam box operator. I discussed all results in depth with the patient. I have advised immediate follow-up with PMD, psychiatrist, neurologist and steam box operator. I've advised immediate return if symptoms worsen persist or if new concerning symptoms develop. Patient verbalizes understanding of discharge instructions and need for immediate followup. all aspects of this case were discussed the attending of record. Impression; anxiety, UTI Follow-up with the primary care physician tomorrow. Do not miss your appointment. Follow-up with the psychiatrist/[facility] Follow-up with your neurologist and steam box operator. xanax; 1 tablet every 8 hours as needed for anxiety; may cause drowsiness Macrobid; 1 tablet twice daily x 10 days. Return immediately if symptoms worsen persist or if new concerning symptoms develop - Lab Interpretations Lab Results: 09/25/17 11:30 09/25/17 11:30 Lab Results 09/25/17 11:59: Urine Opiates Screen Negative, Urine Methadone Screen Negative, Ur Barbiturates Screen Negative, Ur Phencyclidine Scrn Negative, Ur Amphetamines Screen Negative, U Benzodiazepines Scrn Negative, U Oth Cocaine Metabols Negative, U Cannabinoids Screen Negative 09/25/17 11:59: Urine Color Straw, Urine Appearance Clear, Urine pH 7.0, Ur Specific [place] <= 1.005, Urine Protein Negative, Urine Glucose (UA) Negative, Urine Ketones 15 H, Urine Blood Small H, Urine Nitrate Negative, Urine Bilirubin Negative, Urine Urobilinogen 0.2, Ur Leukocyte Esterase Negative, Urine RBC 0 - 2, Urine WBC 0 - 2, Ur Epithelial Cells 0 - 2, Urine Bacteria Few 09/25/17 11:30: Alcohol, Quantitative < 10 09/25/17 11:30: Salicylates < 1 L, Acetaminophen < 10.0 L 09/25/17 11:30: Sodium 139, Potassium 3.3 L, Chloride 106, Carbon Dioxide 18 L, Anion Gap 18, BUN 7, Creatinine 0.6 L, Est GFR ( Amer) > 60, Est GFR (Non -Af Amer) > 60, Random Glucose 112 H, Calcium 10.2, Total Bilirubin 0.8, AST 29 , ALT 34, Alkaline Phosphatase 79, Total Protein 7.7, Albumin 4.7, Globulin 3.0 , Albumin/Globulin Ratio 1.5 09/25/17 11:30: WBC 14.7 H, RBC 4.47, Hgb 13.1, Hct 39.0, MCV 87.2, MCH 29.3, MCHC 33.6, RDW 13.8, Plt Count 433, MPV 10.0, Gran % 77.9 H, Lymph % (Auto) 17.7 L, [place] % (Auto) 4.1, Eos % (Auto) 0.2 L, Baso % (Auto) 0.1, Gran # 11.47 H , Lymph # 2.6, [place] # 0.6, Eos # 0.0, Baso # 0.02 - RAD Interpretation Radiology Orders: 09/25/17 12:11 CHEST PORTABLE [RAD] Stat - Medication Orders Current Medication Orders: Discontinued Medications Alprazolam (Xanax) 0.5 mg PO STAT STA PRN Reason: Protocol Stop: 09/25/17 11:14 Last Admin: 09/25/17 12:12 Dose: 0.5 mg Nitrofurantoin Macrocrystals (Macrobid) 100 mg PO STAT STA Stop: 09/25/17 13:52 Last Admin: 09/25/17 14:11 Dose: 100 mg Potassium Chloride (K-Dur 20 Meq Er Tab) 40 meq PO STAT STA Stop: 09/25/17 13:40 Last Admin: 09/25/17 14:10 Dose: 40 meq Disposition/Present on Arrival - Present on Arrival Any Indicators Present on Arrival: No History of DVT/PE: No History of Uncontrolled Diabetes: No Urinary Catheter: No History of Decub. Ulcer: No History Surgical Site Infection Following: None - Disposition Have Diagnosis and Disposition been Completed?: Yes Diagnosis: Anxiety attack, Urinary tract infection Disposition: HOME/ ROUTINE Disposition Time: 14:45 Patient Plan: Discharge Condition: GOOD Discharge Instructions (ExitCare): Urinary Tract Infection in Women (ED), Anxiety (ED) Additional Instructions: Follow-up with the primary care physician tomorrow. Do not miss your appointment. Follow-up with the psychiatrist/[facility] Follow-up with your neurologist and steam box operator. xanax; 1 tablet every 8 hours as needed for anxiety; may cause drowsiness Macrobid; 1 tablet twice daily x 10 days. Return immediately if symptoms worsen persist or if new concerning symptoms develop Prescriptions: Alprazolam [Xanax] 0.5 mg PO Q8 PRN #2 tab PRN Reason: Anxiety Nitrofurantoin Macrocrystals [Macrobid] 100 mg PO BID #20 cap Referrals: Tiffanie Palomares MD [Primary Care Provider] - Follow up with primary Shaw Brewer MD [Staff Provider] - Follow up with primary Aldo Urias MD [Staff Provider] - Follow up with primary Forms: [employer] (Swedish), WORK NOTE
[2017-09-25 12:25] LABS: BARBITURATES, UR NEGATIVE (NEGATIVE); BENZODIAZEPINES, UR NEGATIVE (NEGATIVE); OPIATES, UR NEGATIVE (NEGATIVE); PHENCYCLIDINE, UR NEGATIVE (NEGATIVE)
[2017-09-25 12:31] LABS: ALB/GLOB RATIO 1.5 (1.1-1.8); ALBUMIN 4.7 g/dL (3.0-4.8); ALT/SGPT 34 U/L (7-56); AST/SGOT 29 U/L (14-36); BLOOD UREA NITROGEN 7 mg/dL (7-21); CALCIUM 10.2 mg/dL (8.4-10.5); GFR AFRICAN-AMERICAN > 60; GFR NON-AFRICAN AMERICAN > 60
--- NOTE | 2017-09-25 13:31 | RAD ---
HISTORY: anxiety COMPARISON: 09/24/2017 FINDINGS: LUNGS: No active pulmonary disease. PLEURA: No significant pleural effusion identified, no pneumothorax apparent. CARDIOVASCULAR: Normal. OSSEOUS STRUCTURES: No significant abnormalities. VISUALIZED UPPER ABDOMEN: Normal. OTHER FINDINGS: None. IMPRESSION: No active disease.
[2017-09-25] MEDS ORDERED: Potassium Chloride 20 mEq ER Tab PO STA (13:39)
[2017-09-25 15:15] VITALS: BP 123/87; PULSE 62; O2SAT 99
--- NOTE | 2017-09-26 13:16 | CARD ---
APPROVED REPORT EKG Measurement Heart [id number] <Conclusion> Sinus tachycardia Possible Left atrial enlargement ST & T wave abnormality, consider inferior ischemia ST & T wave abnormality, consider anterolateral ischemia Abnormal ECG
== END 2017-09-25 14:51 | disposition home or self-care (01) ==
LOC: ED 10:53
DX: F41.9 Anxiety disorder, unspecified (principal); N39.0 Urinary tract infection, site not specified

== ENCOUNTER 2018-02-23 16:37 | Observation (INO) | payer OTHER ==
[2018-02-23 17:04] VITALS: BMI 18.9
--- NOTE | 2018-02-23 18:26 | ED PDOC ---
Arrival/HPI - General Time Seen by Provider: 02/23/18 16:42 Historian: Patient - History of Present Illness Narrative History of Present Illness (Text): 02/23/18 18:23 37 year old female, whose past medical history includes fibromyalgia and anxiety , who presents to the emergency department complaining of sob, chest pain, and nausea since yesterday. Patient was recently seen in the emergency department for anxiety. Patient denies any fever, chills, vomiting, diarrhea, back pain, neck pain, headache, dizziness, or any other complaints. Time/Duration: 24 hours Symptom Onset: Gradual Symptom Course: Unchanged Activities at Onset: Light Context: Home Past Medical History - Provider Review Nursing Documentation Reviewed: Yes - Infectious Disease Hx of Infectious Diseases: None - Cardiac Hx Cardiac Disorders: No - Pulmonary Hx Respiratory Disorders: Yes Hx Asthma: Yes - Neurological Hx Neurological Disorder: Yes Hx Vertigo: Yes - HEENT Hx HEENT Disorder: No - Renal Hx Renal Disorder: No - Endocrine/Metabolic Hx Endocrine Disorders: Yes Hx Hypothyroidism: Yes - Hematological/Oncological Hx Blood Disorders: No - Integumentary Hx Dermatological Disorder: No - Musculoskeletal/Rheumatological Hx Musculoskeletal Disorders: No - Gastrointestinal Hx Gastrointestinal Disorders: Yes Hx Gastritis: Yes - Genitourinary/Gynecological Hx Genitourinary Disorders: No - Psychiatric Hx Psychophysiologic Disorder: Yes Hx Anxiety: Yes Hx Substance Use: No - Surgical History Hx Hysterectomy: Yes Hx Thyroidectomy: Yes Hx Tonsillectomy: Yes - Anesthesia Hx Anesthesia: Yes Hx Anesthesia Reactions: No Family/Social History - Physician Review Nursing Documentation Reviewed: Yes Family/Social History: Unknown Family HX Smoking Status: Never Smoked Hx Alcohol Use: No Hx Substance Use: No Allergies/Home Meds Allergies/Adverse Reactions: Allergies acetaminophen [From Percocet] Allergy (Verified 09/25/17 11:02) VOMITING morphine Allergy (Verified 09/25/17 11:02) VOMITING oxycodone [From Percocet] Allergy (Verified 09/25/17 11:02) VOMITING Home Medications: Home Meds Medication Instructions Recorded Confirmed Aspirin [Adult Aspirin Regimen] 81 mg PO .QOTHERDAY 09/24/17 02/23/18 Cabergoline 0.5 mg PO QWK 09/24/17 02/23/18 Sertraline [Zoloft] 50 mg PO DAILY 01/29/18 06/30/18 Review of Systems - Physician Review All systems were reviewed & negative as marked: Yes - Review of Systems Constitutional: Normal Eyes: Normal ENT: Normal Respiratory: SOB. absent: Cough Cardiovascular: Chest Pain Gastrointestinal: Normal. absent: Abdominal Pain, Diarrhea, Nausea, Vomiting Genitourinary Female: Normal. absent: Dysuria, Frequency, Hematuria Musculoskeletal: Normal. absent: Back Pain, Neck Pain Skin: Normal. absent: Rash Neurological: Normal. absent: Headache, Dizziness Endocrine: Normal Hemo/Lymphatic: Normal Psychiatric: Normal Physical Exam Vital Signs Reviewed: Yes Vital Signs Temp Pulse Pulse Resp BP Pulse Ox 02/23/18 22:09 98.5 F 80 80 18 125/80 02/23/18 20:38 98.5 F 80 18 125/80 100 02/23/18 19:55 18 02/23/18 16:57 98.8 F 85 20 136/82 99 Temperature: Afebrile Blood Pressure: Normal Pulse: Regular Respiratory Rate: Normal Appearance: Positive for: Well-Appearing, Non-Toxic, Comfortable Pain Distress: None Mental Status: Positive for: Alert and Oriented X 3 - Systems Exam Head: Present: Atraumatic, Normocephalic Pupils: Present: PERRL Extroacular Muscles: Present: EOMI Conjunctiva: Present: Normal Mouth: Present: Moist Mucous Membranes Neck: Present: Normal Range of Motion. No: Meningeal Signs, MIDLINE TENDERNESS , Paraspinal Tenderness Respiratory/Chest: Present: Clear to Auscultation, Good Air Exchange. No: Respiratory Distress, Accessory Muscle Use Cardiovascular: Present: Regular Rate and Rhythm, Normal S1, S2. No: Murmurs Abdomen: No: Tenderness, Distention, Peritoneal Signs Back: Present: Normal Inspection. No: CVA Tenderness, Midline Tenderness, Paraspinal Tenderness Upper Extremity: Present: Normal Inspection. No: Cyanosis, Edema Lower Extremity: Present: Normal Inspection. No: Edema, CALF TENDERNESS Neurological: Present: GCS=15, CN II-XII Intact, Speech Normal Skin: Present: Warm, Dry, Normal Color. No: Rashes Psychiatric: Present: Alert, Oriented x 3, Normal Insight, Normal Concentration Medical Decision Making ED Course and Treatment: Impression: 37 year old female presents to the emergency department complaining of SOB, CP , and nausea since yesterday. Plan: -- EKG -- Cardiac Enzymes -- Labs -- Urinalysis -- Chest X-ray -- HCG, Qualitative Urine -- Reassess and disposition Progress Notes: Pt is PERC negative. 02/23/18 18:37 ekg nsr [address] t wave changes normal intervals, no interval change 02/24/18 08:03 endorsed to overnight cashier labs pending. - Lab Interpretations Lab Results: 02/23/18 19:15 02/23/18 19:15 Lab Results 02/23/18 19:15: Sodium 141, Potassium 3.9, Chloride 103, Carbon Dioxide 28, Anion Gap 13, BUN 11, Creatinine 0.5 L, Est GFR ( Amer) > 60, Est GFR ( Non-Af Amer) > 60, Random Glucose 89, Calcium 9.6, Magnesium 2.3 H, Total Bilirubin 0.3, AST 28, ALT 34, Alkaline Phosphatase 71, Lactate Dehydrogenase 281 L, Total Creatine Kinase 38, Troponin I < 0.01, Total Protein 7.0, Albumin 4.1, Globulin 2.8, Albumin/Globulin Ratio 1.4 02/23/18 19:15: PT 10.5, INR 0.92 L, APTT 27.9 02/23/18 19:15: WBC 12.5 H, RBC 4.45, Hgb 13.0, Hct 38.3, MCV 86.1, MCH 29.2, MCHC 33.9, RDW 14.2, Plt Count 426, MPV 9.6, Gran % 70.5 H, Lymph % (Auto) 20.8 L, [place] % (Auto) 8.2 H, Eos % (Auto) 0.3 L, Baso % (Auto) 0.2, Gran # 8.84 H, Lymph # (Auto) 2.6, [place] # (Auto) 1.0 H, Eos # (Auto) 0.0, Baso # (Auto) 0.02 02/23/18 18:48: Urine Color Yellow, Urine Appearance Clear, Urine pH 6.0, Ur Specific [place] <= 1.005, Urine Protein Negative, Urine Glucose (UA) Negative, Urine Ketones Negative, Urine Blood Negative, Urine Nitrate Negative, Urine Bilirubin Negative, Urine Urobilinogen 0.2, Ur Leukocyte Esterase Negative, Urine HCG, Qual Negative - RAD Interpretation Radiology Orders: 02/23/18 17:19 CHEST PORTABLE [RAD] Stat - Medication Orders Current Medication Orders: Alprazolam (Xanax) 0.5 mg PO HS PRN; Protocol PRN Reason: Anxiety Aspirin (Ecotrin) 81 mg PO DAILY [facility] Sodium Chloride (Sodium Chloride 0.9%) 1,000 mls @ 100 mls/hr IV .Q10H SHAGGY Last Admin: 02/24/18 03:28 Dose: 100 mls/hr eMAR Start Stop Document 02/24/18 03:28 (Rec: 02/24/18 03:28 [id number]) Intravenous Solution Start Date 02/24/18 Start Time 03:28 End Date 02/24/18 Cabergoline [ (Dostinex] 0.5 Mg)) 0.5 mg PO QWK [facility] Ondansetron HCl (Zofran Inj) 4 mg IVP Q4H PRN PRN Reason: Nausea/Vomiting Pantoprazole Sodium (Protonix Ec Tab) 40 mg PO 0600 [facility] Last Admin: 02/24/18 05:16 Dose: 40 mg Sertraline HCl (Zoloft) 50 mg PO DAILY [facility] Discontinued Medications Aspirin (Aspirin) 325 mg PO STAT STA Stop: 02/23/18 19:05 Last Admin: 02/23/18 19:27 Dose: 325 mg Pneumococcal Polyvalent Vaccine (Pneumovax 23 Vaccine) 0.5 ml IM .ONCE ONE Stop: 02/23/18 22:26 Sertraline HCl (Zoloft) 100 mg PO DAILY [facility] - Scribe Statement The provider has reviewed the documentation as recorded by the Elvi Rodriguez All medical record entries made by the Elvi were at my direction and personally dictated by me. I have reviewed the chart and agree that the record accurately reflects my personal performance of the history, physical exam, medical decision making, and the department course for this patient. I have also personally directed, reviewed, and agree with the discharge instructions and disposition. Disposition/Present on Arrival - Present on Arrival Any Indicators Present on Arrival: No History of DVT/PE: No History of Uncontrolled Diabetes: No Urinary Catheter: No History Surgical Site Infection Following: None - Disposition Have Diagnosis and Disposition been Completed?: Yes Diagnosis: Chest pain Disposition: HOSPITALIZED Disposition Time: 07:00 Patient Problems: Current Active Problems Problem Status Onset Chest pain Acute Condition: STABLE
[2018-02-23 18:58] LABS: URINE BILIRUBIN NEGATIVE (NEGATIVE); URINE BLOOD NEGATIVE (NEGATIVE); URINE GLUCOSE (UA) NEGATIVE (NEGATIVE); URINE LEUKOCYTE ESTERASE NEGATIVE Leu/uL (NEGATIVE); URINE PROTEIN NEGATIVE mg/dL (<30 mg/dL); URINE UROBILINOGEN 0.2 E.U./dL (<1 E.U./dL)
[2018-02-23 19:03] LABS: HCG,QUALITATIVE URINE NEGATIVE (NEGATIVE); URINE APPEARANCE CLEAR (CLEAR); URINE COLOR YELLOW (YELLOW)
[2018-02-23 19:31] LABS: BASO # 0.02 K/mm3 (0.0-2.0); BASO % 0.2 % (0.0-3.0); EOS % 0.3 % (1.5-5.0); GRAN # 8.84 (1.4-6.5); GRAN % 70.5 % (50.0-68.0); LYMPH # 2.6 (1.2-3.4); LYMPH % 20.8 % (22.0-35.0); MEAN CELL VOLUME 86.1 fl (80.0-105.0); MEAN CORPUSCULAR HEMOGLOBIN 29.2 pg (25.0-35.0); MEAN CORPUSCULAR HGB CONC 33.9 g/dl (31.0-37.0); MEAN PLATELET VOLUME 9.6 fl (7.0-11.0); MONO % 8.2 % (1.0-6.0); RBC 4.45 10^6/uL (3.5-6.1); RED CELL DISTRIBUTION WIDTH 14.2 % (11.5-14.5); WHITE BLOOD COUNT 12.5 10^3/ul (4.5-11.0)
[2018-02-23 19:37] LABS: INR 0.92 (0.93-1.08); PARTIAL THROMBOPLASTIN TIME 27.9 Seconds (25.1-36.5); PROTHROMBIN TIME 10.5 SECONDS (9.4-12.5)
[2018-02-23 19:40] LABS: ALB/GLOB RATIO 1.4 (1.1-1.8); ALBUMIN 4.1 g/dL (3.0-4.8); ALT/SGPT 34 U/L (7-56); AST/SGOT 28 U/L (14-36); BLOOD UREA NITROGEN 11 mg/dL (7-21); CALCIUM 9.6 mg/dL (8.4-10.5); GFR AFRICAN-AMERICAN > 60; GFR NON-AFRICAN AMERICAN > 60
[2018-02-23 19:51] LABS: TROPONIN I < 0.01 ng/mL
--- NOTE | 2018-02-23 19:55 | ED PDOC ---
Physical Exam Vital Signs Temp Pulse Resp BP Pulse Ox 02/23/18 16:57 98.8 F 85 20 136/82 99 Medical Decision Making ED Course and Treatment: 02/23/18 19:50 Case endorsed to me by Dr. Tolentino. Pt, whose past medical history includes fibromyalgia,herniated discs, and anxiety, presents to the emergency department complaining of chest pain/occassional shortness of breath. Pt denies any past exertional cp.Pt. describes discomfort as a tightness when it occurs.Doesn't feel this is anxiety related. Pt denies ant fever, cough, chills, suicidal ideation, or homicidal ideation. Pt is currently stable. Chest X-ray reviewed, shows no acute disease. 02/23/18 20:23 Case discussed with bio medical technician and house physician. Dr. Ballard accepts pt to hospitalist service. - Lab Interpretations Lab Results: 02/23/18 19:15 02/23/18 19:15 Lab Results 02/23/18 19:15: Sodium 141, Potassium 3.9, Chloride 103, Carbon Dioxide 28, Anion Gap 13, BUN 11, Creatinine 0.5 L, Est GFR ( Amer) > 60, Est GFR ( Non-Af Amer) > 60, Random Glucose 89, Calcium 9.6, Magnesium 2.3 H, Total Bilirubin 0.3, AST 28, ALT 34, Alkaline Phosphatase 71, Lactate Dehydrogenase 281 L, Total Creatine Kinase 38, Troponin I < 0.01, Total Protein 7.0, Albumin 4.1, Globulin 2.8, Albumin/Globulin Ratio 1.4 02/23/18 19:15: PT 10.5, INR 0.92 L, APTT 27.9 02/23/18 19:15: WBC 12.5 H, RBC 4.45, Hgb 13.0, Hct 38.3, MCV 86.1, MCH 29.2, MCHC 33.9, RDW 14.2, Plt Count 426, MPV 9.6, Gran % 70.5 H, Lymph % (Auto) 20.8 L, [place] % (Auto) 8.2 H, Eos % (Auto) 0.3 L, Baso % (Auto) 0.2, Gran # 8.84 H, Lymph # (Auto) 2.6, [place] # (Auto) 1.0 H, Eos # (Auto) 0.0, Baso # (Auto) 0.02 02/23/18 18:48: Urine Color Yellow, Urine Appearance Clear, Urine pH 6.0, Ur Specific [place] <= 1.005, Urine Protein Negative, Urine Glucose (UA) Negative, Urine Ketones Negative, Urine Blood Negative, Urine Nitrate Negative, Urine Bilirubin Negative, Urine Urobilinogen 0.2, Ur Leukocyte Esterase Negative, Urine HCG, Qual Negative - RAD Interpretation Radiology Orders: 02/23/18 17:19 CHEST PORTABLE [RAD] Stat - Medication Orders Current Medication Orders: Discontinued Medications Aspirin (Aspirin) 325 mg PO STAT STA Stop: 02/23/18 19:05 Last Admin: 02/23/18 19:27 Dose: 325 mg - Scribe Statement The provider has reviewed the documentation as recorded by the Scribchristiana Rodriguez All medical record entries made by the Scribe were at my direction and personally dictated by me. I have reviewed the chart and agree that the record accurately reflects my personal performance of the history, physical exam, medical decision making, and the department course for this patient. I have also personally directed, reviewed, and agree with the discharge instructions and disposition. Disposition/Present on Arrival - Present on Arrival Any Indicators Present on Arrival: No History of DVT/PE: No History of Uncontrolled Diabetes: No Urinary Catheter: No History of Decub. Ulcer: No History Surgical Site Infection Following: None - Disposition Have Diagnosis and Disposition been Completed?: Yes Diagnosis: Chest pain Disposition: HOSPITALIZED Disposition Time: 20:21 Patient Problems: Current Active Problems Problem Status Onset Chest pain Acute Condition: STABLE Discharge Instructions (ExitCare): Chest Pain (ED) Referrals: Magdalene Laboy DO [Primary Care Provider] - Follow up with primary
--- NOTE | 2018-02-23 20:35 | CP.PCM.HP ---
<Farheen Harman - Last Filed: 02/24/18 04:44> History of Present Illness - History of Present Illness History of Present Illness: History and Physical- Hospitalist Service CC: "Chest pain" HPI: Patient is a 37 year old female with past medical history of fibromyalgia, anxiety, pituitary tumor, chronic headaches [place] [facility] [place] chest pain that started this evening around 6pm. Patient states that she was laying in bed when she began to experience left sided chest pain. The pain was sharp in nature and rates 7/10. Denies any radiation but states that she occasionally with get pain under her left rib. Patient states that this pain is not related to her anxiety. After onset of chest pain, patient states that she was feeling dizzy, fatigued and nauseous. She also admits to feeling numbness and tingling in the hands and feet. 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 She states that she was admitted to [facility] a few months ago for chest pain. She reports being on a holter monitor and was told that she only had one arrhythmia at that time and that it was not worrisome. She also admits to having a stress test in the past but wasn't able to complete it because she became dizzy while walking on the treadmill. Currently she states that the chest pain is intermittent and has decreased intensity, 5/10 on pain scale. Patient states that she recently got an epidural injection in her neck for pain last Sunday which provided her with relief. Offers no other complaints at this time. Denies headaches, visual changes, vomiting, sob, abdominal pain, urinary symptoms, changes in bowel habits. ED Course: ASA 325mg PMD: Benoit Economist Research Assistant: Reymundo Allergies: Acetaminophen, morphine, oxycodone Medications: Xanax 0.5mg PO HS, Ranitidine, carbergolin 0.5mg weekly Medical History: Fibromyalgia, anxiety, pituitary tumor, chronic headaches Surgical History: Hysterectomy, Tonsillectomy, BTL, fibroid removal Social History: Denies alcohol, tobacco, drug use Family History: Mother - heart disease; Father - heart disease; Uncle - [place] Present on Admission - Present on Admission Any Indicators Present on Admission: No Past Patient History - Infectious Disease Hx of Infectious Diseases: None - Past Social History Smoking Status: Never Smoked - CARDIAC Hx Cardiac Disorders: No - PULMONARY Hx Respiratory Disorders: Yes Hx Asthma: Yes - NEUROLOGICAL Hx Neurological Disorder: Yes Hx Vertigo: Yes - HEENT Hx HEENT Problems: No - RENAL Hx Chronic Kidney Disease: No - ENDOCRINE/METABOLIC Hx Endocrine Disorders: Yes Hx Hypothyroidism: Yes - HEMATOLOGICAL/ONCOLOGICAL Hx Blood Disorders: No Other/Comment: Pituitary tumor - INTEGUMENTARY Hx Dermatological Problems: No - MUSCULOSKELETAL/RHEUMATOLOGICAL Hx Arthritis: Yes Hx Back Pain: Yes - GASTROINTESTINAL Hx Gastrointestinal Disorders: Yes Hx Gastritis: Yes - GENITOURINARY/GYNECOLOGICAL Hx Genitourinary Disorders: No - PSYCHIATRIC Hx Psychophysiologic Disorder: Yes Hx Anxiety: Yes Hx Substance Use: No - SURGICAL HISTORY Hx Hysterectomy: Yes Hx Thyroidectomy: Yes Hx Tonsillectomy: Yes - ANESTHESIA Hx Anesthesia: Yes Hx Anesthesia Reactions: No Meds Allergies/Adverse Reactions: Allergies Allergy/AdvReac Type Severity Reaction Status Date / Time acetaminophen [From Percocet] Allergy VOMITING Verified 09/25/17 11:02 morphine Allergy VOMITING Verified 09/25/17 11:02 oxycodone [From Percocet] Allergy VOMITING Verified 09/25/17 11:02 Physical Exam - Constitutional Appears: Non-toxic, No Acute Distress - Head Exam Head Exam: ATRAUMATIC, NORMAL INSPECTION, NORMOCEPHALIC - Eye Exam Eye Exam: EOMI, Normal appearance Pupil Exam: NORMAL ACCOMODATION - ENT Exam ENT Exam: Mucous Membranes Moist - Neck Exam Neck exam: Positive for: Full Rom - Respiratory Exam Respiratory Exam: Clear to Auscultation Bilateral, NORMAL BREATHING PATTERN. absent: Rales, Rhonchi, Wheezes - Cardiovascular Exam Cardiovascular Exam: REGULAR RHYTHM, +S1, +S2 Additional comments: +left sided chest wall tenderness to palpation - GI/Abdominal Exam GI & Abdominal Exam: Normal Bowel Sounds, Soft. absent: Guarding, Rebound, Rigid, Tenderness - Rectal Exam Rectal Exam: Deferred - Extremities Exam Extremities exam: Positive for: normal inspection, pedal pulses present. Negative for: calf tenderness - Back Exam Back exam: NORMAL INSPECTION - Neurological Exam Neurological exam: Alert, CN II-XII Intact, Oriented x3 - Psychiatric Exam Psychiatric exam: Normal Affect, Normal Mood - Skin Skin Exam: Dry, Normal Color, Warm Results - Vital Signs Recent Vital Signs: Last Vital Signs Temp 98.8 F 02/23/18 16:57 Pulse 85 02/23/18 16:57 Resp 20 02/23/18 16:57 BP 136/82 06/30/18 16:57 Pulse Ox 99 02/23/18 16:57 - Labs Result Diagrams: 02/23/18 19:15 02/23/18 19:15 Labs: Laboratory Results - last 24 hr 02/23/18 02/23/18 02/23/18 18:48 19:15 19:15 WBC 12.5 H RBC 4.45 Hgb 13.0 Hct 38.3 MCV 86.1 MCH 29.2 MCHC 33.9 RDW 14.2 Plt Count 426 MPV 9.6 Gran % 70.5 H Lymph % (Auto) 20.8 L Jack % (Auto) 8.2 H Eos % (Auto) 0.3 L Baso % (Auto) 0.2 Gran # 8.84 H Lymph # (Auto) 2.6 Jack # (Auto) 1.0 H Eos # (Auto) 0.0 Baso # (Auto) 0.02 PT 10.5 INR 0.92 L APTT 27.9 Sodium Potassium Chloride Carbon Dioxide Anion Gap BUN Creatinine Est GFR ( Amer) Est GFR (Non-Af Amer) Random Glucose Calcium Magnesium Total Bilirubin AST ALT Alkaline Phosphatase Lactate Dehydrogenase Total Creatine Kinase Troponin I Total Protein Albumin Globulin Albumin/Globulin Ratio Urine Color Yellow Urine Appearance Clear Urine pH 6.0 Ur Specific [place] <= 1.005 Urine Protein Negative Urine Glucose (UA) Negative Urine Ketones Negative Urine Blood Negative Urine Nitrate Negative Urine Bilirubin Negative Urine Urobilinogen 0.2 Ur Leukocyte Esterase Negative Urine HCG, Qual Negative 02/23/18 19:15 WBC RBC Hgb Hct MCV MCH MCHC RDW Plt Count MPV Gran % Lymph % (Auto) Jack % (Auto) Eos % (Auto) Baso % (Auto) Gran # Lymph # (Auto) Jack # (Auto) Eos # (Auto) Baso # (Auto) PT INR APTT Sodium 141 Potassium 3.9 Chloride 103 Carbon Dioxide 28 Anion Gap 13 BUN 11 Creatinine 0.5 L Est GFR ( Amer) > 60 Est GFR (Non-Af Amer) > 60 Random Glucose 89 Calcium 9.6 Magnesium 2.3 H Total Bilirubin 0.3 AST 28 ALT 34 Alkaline Phosphatase 71 Lactate Dehydrogenase 281 L Total Creatine Kinase 38 Troponin I < 0.01 Total Protein 7.0 Albumin 4.1 Globulin 2.8 Albumin/Globulin Ratio 1.4 Urine Color Urine Appearance Urine pH Ur Specific [place] Urine Protein Urine Glucose (UA) Urine Ketones Urine Blood Urine Nitrate Urine Bilirubin Urine Urobilinogen Ur Leukocyte Esterase Urine HCG, Qual Assessment & Plan - Assessment and Plan (Free Text) Assessment: A/P: Patient is a 37 year old female with past medical history of anxiety, fibromyalgia, pituitary mass presents to the ED for chest pain. Chest pain/Palpitations -Stable, afebrile -Admit to telemetry -Initial troponin negative, trend Q8H x 2 -EKG showed NSR [address] t wave changes normal intervals, no interval change -CXR showing no active disease (official read pending) -Last echo 05/2017 which showed normal EF -F/U HgA1C, Lipid panel, TSH/Free T4 -Reach out to [facility] for medical records -Cardiology on consult, help appreciated Leukocytosis -Afebrile, WBC 12.5 -UA negative -CXR showed no active disease (official read pending) -No active sign of infection at this time, could be stress induced -Will continue to monitor Generalized Fatigue -F/U TSH/Free T4 levels -NS @ 100cc/hr Pituitary Tumor -Continue Cabergoline 0.5mg Qweekly Anxiety -Xanax 0.5mg PO HS prn GI/DVT ppx: -Protonix 40mg PO daily -SCDs Plan discussed with Dr Clara Harman DO PGY-1 <Clara Ballard N - Last Filed: 02/24/18 07:02> Results - Vital Signs Recent Vital Signs: Last Vital Signs Temp 97.7 F 02/24/18 03:05 Pulse 55 L 02/24/18 05:52 Resp 19 02/24/18 03:05 BP 100/80 02/24/18 03:06 Pulse Ox 98 02/24/18 03:05 - Labs Result Diagrams: 02/24/18 05:00 02/24/18 05:00 Labs: Laboratory Results - last 24 hr 02/23/18 02/24/18 02/24/18 21:10 02:55 05:00 WBC RBC Hgb Hct MCV MCH MCHC RDW Plt Count MPV Gran % Lymph % (Auto) Jack % (Auto) Eos % (Auto) Baso % (Auto) Gran # Lymph # (Auto) Jack # (Auto) Eos # (Auto) Baso # (Auto) Sodium Potassium Chloride Carbon Dioxide Anion Gap BUN Creatinine Est GFR ( Amer) Est GFR (Non-Af Amer) Random Glucose Calcium Phosphorus Magnesium Total Bilirubin AST ALT Alkaline Phosphatase Troponin I < 0.01 Total Protein Albumin Globulin Albumin/Globulin Ratio Triglycerides 107 Cholesterol 237 H LDL Cholesterol Direct 149 H HDL Cholesterol 61 H Free T4 0.95 TSH 3rd Generation 0.54 Urine Opiates Screen Negative Urine Methadone Screen Negative Ur Barbiturates Screen Negative Ur Phencyclidine Scrn Negative Ur Amphetamines Screen Negative U Benzodiazepines Scrn Negative U Oth Cocaine Metabols Negative U Cannabinoids Screen Negative 02/24/18 02/24/18 05:00 05:00 WBC 12.2 H RBC 4.23 Hgb 12.3 Hct 36.9 MCV 87.2 MCH 29.1 MCHC 33.3 RDW 14.4 Plt Count 411 MPV 10.1 Gran % 66.3 Lymph % (Auto) 24.3 Jack % (Auto) 8.6 H Eos % (Auto) 0.7 L Baso % (Auto) 0.1 Gran # 8.07 H Lymph # (Auto) 3.0 Jack # (Auto) 1.0 H Eos # (Auto) 0.1 Baso # (Auto) 0.01 Sodium 139 Potassium 3.7 Chloride 104 Carbon Dioxide 27 Anion Gap 12 BUN 12 Creatinine 0.6 L Est GFR ( Amer) > 60 Est GFR (Non-Af Amer) > 60 Random Glucose 111 H Calcium 9.3 Phosphorus 4.2 Magnesium 2.3 H Total Bilirubin 0.4 AST 27 ALT 29 Alkaline Phosphatase 61 Troponin I Total Protein 6.5 Albumin 3.8 Globulin 2.8 Albumin/Globulin Ratio 1.4 Triglycerides Cholesterol LDL Cholesterol Direct HDL Cholesterol Free T4 TSH 3rd Generation Urine Opiates Screen Urine Methadone Screen Ur Barbiturates Screen Ur Phencyclidine Scrn Ur Amphetamines Screen U Benzodiazepines Scrn U Oth Cocaine Metabols U Cannabinoids Screen
[2018-02-23 21:49] LABS: BENZODIAZEPINES, UR NEGATIVE (NEGATIVE)
[2018-02-23 21:54] LABS: BARBITURATES, UR NEGATIVE (NEGATIVE); OPIATES, UR NEGATIVE (NEGATIVE); PHENCYCLIDINE, UR NEGATIVE (NEGATIVE)
[2018-02-23] MEDS ORDERED: Pneumococcal 23-Valent Vaccine IM ONE (22:25)
[2018-02-24 03:12] LABS: HDL CHOLESTEROL 61 mg/dL (29-60)
[2018-02-24 03:23] LABS: LDL CHOLESTEROL 149 mg/dL (0-129)
[2018-02-24] MEDS ORDERED: Sodium Chloride 0.9% 1,000 ML IV SCH (03:30)
[2018-02-24 04:11] LABS: TROPONIN I < 0.01 ng/mL
[2018-02-24 05:33] LABS: BASO # 0.01 K/mm3 (0.0-2.0); BASO % 0.1 % (0.0-3.0); EOS # 0.1 (0.0-0.7); EOS % 0.7 % (1.5-5.0); GRAN # 8.07 (1.4-6.5); GRAN % 66.3 % (50.0-68.0); HEMOGLOBIN 12.3 g/dL (12.0-16.0); LYMPH % 24.3 % (22.0-35.0); MEAN CELL VOLUME 87.2 fl (80.0-105.0); MEAN CORPUSCULAR HEMOGLOBIN 29.1 pg (25.0-35.0); MEAN CORPUSCULAR HGB CONC 33.3 g/dl (31.0-37.0); MEAN PLATELET VOLUME 10.1 fl (7.0-11.0); MONO % 8.6 % (1.0-6.0); RBC 4.23 10^6/uL (3.5-6.1); RED CELL DISTRIBUTION WIDTH 14.4 % (11.5-14.5); WHITE BLOOD COUNT 12.2 10^3/ul (4.5-11.0)
[2018-02-24 05:36] LABS: ALB/GLOB RATIO 1.4 (1.1-1.8); ALBUMIN 3.8 g/dL (3.0-4.8); ALT/SGPT 29 U/L (7-56); AST/SGOT 27 U/L (14-36); BLOOD UREA NITROGEN 12 mg/dL (7-21); CALCIUM 9.3 mg/dL (8.4-10.5); GFR AFRICAN-AMERICAN > 60; GFR NON-AFRICAN AMERICAN > 60
[2018-02-24 05:52] LABS: FREE T4 0.95 ng/dL (0.78-2.19)
[2018-02-24 05:53] VITALS: PULSE 55
[2018-02-24] MEDS ORDERED: Pantoprazole 40 mg EC Tab PO SCH (06:00)
[2018-02-24 08:08] VITALS: BP 118/79; RESP 20; TEMP 97.9; O2SAT 99
--- NOTE | 2018-02-24 10:43 | RAD ---
HISTORY: Chest pain COMPARISON: 09/25/2017 FINDINGS: LUNGS: No active pulmonary disease. PLEURA: No significant pleural effusion identified, no pneumothorax apparent. CARDIOVASCULAR: Normal. OSSEOUS STRUCTURES: No significant abnormalities. VISUALIZED UPPER ABDOMEN: Normal. OTHER FINDINGS: None. IMPRESSION: No active disease. No significant interval change compared to the prior examination(s).
--- NOTE | 2018-02-24 17:05 | CARD ---
APPROVED REPORT EKG Measurement Heart [id number] <Conclusion> Normal sinus rhythm Nonspecific T wave abnormality Abnormal ECG
--- NOTE | 2018-02-25 03:47 | CON ---
DATE: 02/24/2018 LOCATION: The patient in room 366, bed 1. This consult being done on behalf of Dr. Costello whom I am covering. REASON FOR CONSULTATION: Chest pain. HISTORY OF PRESENT ILLNESS: A 37-year-old female, who is known to have pituitary tumor, probably pituitary adenoma, fibromyalgia, anxiety, chronic headaches. She says she has cervical spine problems and she felt episode of chest pain, which was a sharp pain by the left sternal border, which lasted 30 minutes. The patient also complains aches and pain allover the body. She also gets easy fatigability. The patient sees Dr. 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 The patient denies any history of chest pain on walking. PAST MEDICAL HISTORY: Past history positive as mentioned. The patient has a history of hypertension, asthma, fibromyalgia, spinal disk problem, pituitary adenoma. PAST SURGICAL HISTORY: The patient had a tonsillectomy, also had a surgery for fibroid and later on had a hysterectomy, earlier the patient also had tubal ligation. PERSONAL HISTORY: Denies smoking. Denies drinking. ALLERGIES: THE PATIENT IS ALLERGIC TO MORPHINE AND PERCOCET. MEDICATIONS: The patient's home medications included Zoloft 50 daily, cabergoline 0.5 mg weekly, aspirin 81 mg every other day, Xanax 0.5 every 8 hours p.r.n., Lipitor 40 mg p.o. daily, aspirin 81 mg daily. FAMILY HISTORY: Positive for hypertension. REVIEW OF SYSTEMS: All the systems are reviewed, positives mentioned in the history, others were negative. PHYSICAL EXAMINATION: VITAL SIGNS: Blood pressure 118/79, respirations 20, pulse 55, temperature 97.9. HEENT: Head is normocephalic. Eyes, pupils normal. Conjunctivae normal. Nose and throat normal. NECK: JVP low. Carotids equal. THORAX: AP diameter normal. CARDIOVASCULAR: S1 and S2. LUNGS: Clear. ABDOMEN: Soft. No tenderness. No organomegaly. EXTREMITIES: No clubbing. No cyanosis. The patient had tenderness, multiple spots, upper arm, and also tenderness at the place where she complained sharp chest pain. LABORATORY DATA: WBC 12.2, hemoglobin 12.3, hematocrit 36.9, platelet 411. Troponin x3 negative. Sodium 139, potassium 3.7, BUN 12, creatinine 0.6. Calcium and phosphorus normal. Magnesium 2.3 AST and ALT normal. Total protein and albumin normal. Cholesterol 237, LDH 149, HDL 61, triglyceride 107. Chest x-ray, no acute disease. EKG shows regular sinus rhythm, nonspecific ST-T changes. DIAGNOSES: Chest pain, atypical, probably musculoskeletal. She has tenderness on the spot of the pain. Pain was sharp and not related to position. The patient had recent echo and stress test with Dr. Isabel in [place] in 10/2017, was told negative. Hypertension, asthma, sleep apnea, fibromyalgia, cervical spinal degenerative disease. PLAN: Clinically, pain was musculoskeletal. The patient's cardiac workup and biopsy were negative by Dr. Isabel including stress test and echo. The patient will continue atorvastatin 40 p.o. daily, aspirin 81 mg daily, Protonix 40 daily, Zoloft 50 daily, Xanax 0.5 p.r.n. every 8 hours. She is on Zoloft 50 daily. No cardiac workup indicated at this moment. She will follow with Dr. Isabel and her primary physician as outpatient. Aldo Funk MD
--- NOTE | 2018-02-25 06:29 | CP.PCM.DIS ---
<Julianne Gibson - Last Filed: 02/25/18 15:37> Provider - Provider Date of Admission: 02/23/18 20:21 Attending physician: Figueroa Jones MD Primary care physician: Magdalene Laboy DO Consults: Cardio Trang/Blessing Time Spent in preparation of Discharge (in minutes): 45 Diagnosis - Discharge Diagnosis (1) Anxiety Status: Acute (2) Chest pain Status: Acute Hospital Course - Lab Results Lab Results: Most Recent Lab Values WBC 12.2 10^3/ul (4.5-11.0) H 02/24/18 05:00 RBC 4.23 10^6/uL (3.5-6.1) 02/24/18 05:00 Hgb 12.3 g/dL (12.0-16.0) 02/24/18 05:00 Hct 36.9 % (36.0-48.0) 02/24/18 05:00 MCV 87.2 fl (80.0-105.0) 02/24/18 05:00 MCH 29.1 pg (25.0-35.0) 02/24/18 05:00 MCHC 33.3 g/dl (31.0-37.0) 02/24/18 05:00 RDW 14.4 % (11.5-14.5) 02/24/18 05:00 Plt Count 411 10^3/uL (120.0-450.0) 02/24/18 05:00 MPV 10.1 fl (7.0-11.0) 02/24/18 05:00 Gran % 66.3 % (50.0-68.0) 02/24/18 05:00 Lymph % (Auto) 24.3 % (22.0-35.0) 02/24/18 05:00 [place] % (Auto) 8.6 % (1.0-6.0) H 02/24/18 05:00 Eos % (Auto) 0.7 % (1.5-5.0) L 02/24/18 05:00 Baso % (Auto) 0.1 % (0.0-3.0) 02/24/18 05:00 Gran # 8.07 (1.4-6.5) H 02/24/18 05:00 Lymph # (Auto) 3.0 (1.2-3.4) 02/24/18 05:00 [place] # (Auto) 1.0 (0.1-0.6) H 02/24/18 05:00 Eos # (Auto) 0.1 (0.0-0.7) 02/24/18 05:00 Baso # (Auto) 0.01 K/mm3 (0.0-2.0) 02/24/18 05:00 PT 10.5 SECONDS (9.4-12.5) 02/23/18 19:15 INR 0.92 (0.93-1.08) L 02/23/18 19:15 APTT 27.9 Seconds (25.1-36.5) 02/23/18 19:15 Sodium 139 mmol/L (132-148) 02/24/18 05:00 Potassium 3.7 mmol/L (3.6-5.0) 02/24/18 05:00 Chloride 104 mmol/L (98-107) 02/24/18 05:00 Carbon Dioxide 27 mmol/L (21-33) 02/24/18 05:00 Anion Gap 12 (10-20) 02/24/18 05:00 BUN 12 mg/dL (7-21) 02/24/18 05:00 Creatinine 0.6 mg/dl (0.7-1.2) L 02/24/18 05:00 Est GFR ( Amer) > 60 02/24/18 05:00 Est GFR (Non-Af Amer) > 60 02/24/18 05:00 Random Glucose 111 mg/dL (70-110) H 02/24/18 05:00 Hemoglobin A1c 5.5 % (4.2-6.5) 02/24/18 05:00 Calcium 9.3 mg/dL (8.4-10.5) 02/24/18 05:00 Phosphorus 4.2 mg/dL (2.5-4.5) 02/24/18 05:00 Magnesium 2.3 mg/dL (1.7-2.2) H 02/24/18 05:00 Total Bilirubin 0.4 mg/dL (0.2-1.3) 02/24/18 05:00 AST 27 U/L (14-36) 02/24/18 05:00 ALT 29 U/L (7-56) 02/24/18 05:00 Alkaline Phosphatase 61 U/L (38-126) 02/24/18 05:00 Lactate Dehydrogenase 281 U/L (333-699) L 02/23/18 19:15 Total Creatine Kinase 38 U/L (35-230) 02/23/18 19:15 Troponin I < 0.01 ng/mL 02/24/18 11:00 Total Protein 6.5 g/dL (5.8-8.3) 02/24/18 05:00 Albumin 3.8 g/dL (3.0-4.8) 02/24/18 05:00 Globulin 2.8 gm/dL 02/24/18 05:00 Albumin/Globulin Ratio 1.4 (1.1-1.8) 02/24/18 05:00 Triglycerides 107 mg/dL (35-160) 02/24/18 02:55 Cholesterol 237 mg/dL (130-200) H 02/24/18 02:55 LDL Cholesterol Direct 149 mg/dL (0-129) H 02/24/18 02:55 HDL Cholesterol 61 mg/dL (29-60) H 02/24/18 02:55 Free T4 0.95 ng/dL (0.78-2.19) 02/24/18 05:00 TSH 3rd Generation 0.54 mIU/mL (0.46-4.68) 02/24/18 05:00 Urine Color Yellow (YELLOW) 02/23/18 18:48 Urine Appearance Clear (CLEAR) 02/23/18 18:48 Urine pH 6.0 (4.7-8.0) 02/23/18 18:48 Ur Specific [place] <= 1.005 (1.005-1.035) 02/23/18 18:48 Urine Protein Negative mg/dL (<30 mg/dL) 02/23/18 18:48 Urine Glucose (UA) Negative mg/dL (NEGATIVE) 02/23/18 18:48 Urine Ketones Negative mg/dL (NEGATIVE) 02/23/18 18:48 Urine Blood Negative (NEGATIVE) 02/23/18 18:48 Urine Nitrate Negative (NEGATIVE) 02/23/18 18:48 Urine Bilirubin Negative (NEGATIVE) 02/23/18 18:48 Urine Urobilinogen 0.2 E.U./dL (<1 E.U./dL) 02/23/18 18:48 Ur Leukocyte Esterase Negative [place]/uL (NEGATIVE) 02/23/18 18:48 Urine HCG, Qual Negative (NEGATIVE) 02/23/18 18:48 Urine Opiates Screen Negative (NEGATIVE) 02/23/18 21:10 Urine Methadone Screen Negative (NEGATIVE) 02/23/18 21:10 Ur Barbiturates Screen Negative (NEGATIVE) 02/23/18 21:10 Ur Phencyclidine Scrn Negative (NEGATIVE) 02/23/18 21:10 Ur Amphetamines Screen Negative (NEGATIVE) 02/23/18 21:10 U Benzodiazepines Scrn Negative (NEGATIVE) 02/23/18 21:10 U Oth Cocaine Metabols Negative (NEGATIVE) 02/23/18 21:10 U Cannabinoids Screen Negative (NEGATIVE) 02/23/18 21:10 - Hospital Course Hospital Course: Discharge Summary for 02/24/18: 37 year old female with past medical history of fibromyalgia, anxiety, pituitary tumor, chronic headaches presents to [facility] [place] for chest pain that started this evening around 6pm. Patient states that she was laying in bed when she began to experience left sided chest pain. The pain was sharp in nature and rates 7/10. Denies any radiation but states that she occasionally with get pain under her left rib. EKG, troponins negative x3. LDL 149, started on lipitor. Echo 05/2017 showed normal findings. Cardiology consulted. Patient had a stress test 3 months ago, which was normal. This AM, patient does admit that the chest pain is likely from anxiety, states that she will follow up with her PMD Dr Laboy regarding it. Case seen and discussed with Dr Jones. Julianne Gibson, PGY2 Discharge Exam - Head Exam Head Exam: ATRAUMATIC, NORMAL INSPECTION, NORMOCEPHALIC - Eye Exam Eye Exam: EOMI, PERRL. absent: Conjunctival injection, Nystagmus, Scleral icterus Pupil Exam: NORMAL ACCOMODATION, PERRL. absent: Fixed, Irregular, Miosis, Unequal - ENT Exam ENT Exam: Mucous Membranes Moist - Neck Exam Neck exam: Full Rom - Respiratory Exam Respiratory Exam: Clear to PA & Lateral, NORMAL BREATHING PATTERN. absent: Chest Wall Tenderness, Rales, Rhonchi, Wheezes, Respiratory Distress, Stridor - Cardiovascular Exam Cardiovascular Exam: RRR, +S1, +S2. absent: Systolic Murmur - GI/Abdominal Exam GI & Abdominal Exam: Normal Bowel Sounds, Soft. absent: Distended, Firm, Guarding, Organomegaly, Pulsatile Mass, Rebound, Rigid, Tenderness - Extremities Exam Extremities exam: normal inspection - Back Exam Back exam: NORMAL INSPECTION - Neurological Exam Neurological exam: Alert, Oriented x3 - Psychiatric Exam Psychiatric exam: Anxious - Skin Skin Exam: Dry, Normal Color, Warm Discharge Plan - Discharge Medications Prescriptions: Atorvastatin [Lipitor] 40 mg PO DIN 14 Days tab - Follow Up Plan Condition: STABLE Disposition: HOME/ ROUTINE Instructions: Chest Pain That Is Not Caused by the Heart (DC), Chest Pain (GEN) Additional Instructions: - Please take lipitor with other home meds - Follow up with cardiology outpatient - Follow up with PMD in 1 week. - Return to ER for any concerns Referrals: Magdalene Laboy DO [Primary Care Provider] - <Figueroa Jones - Last Filed: 02/26/18 14:24> Provider - Provider Date of Admission: 02/23/18 20:21 Attending physician: Figueroa Jones MD Primary care physician: Magdalene Laboy DO Hospital Course - Lab Results Lab Results: Most Recent Lab Values WBC 12.2 10^3/ul (4.5-11.0) H 02/24/18 05:00 RBC 4.23 10^6/uL (3.5-6.1) 02/24/18 05:00 Hgb 12.3 g/dL (12.0-16.0) 02/24/18 05:00 Hct 36.9 % (36.0-48.0) 02/24/18 05:00 MCV 87.2 fl (80.0-105.0) 02/24/18 05:00 MCH 29.1 pg (25.0-35.0) 02/24/18 05:00 MCHC 33.3 g/dl (31.0-37.0) 02/24/18 05:00 RDW 14.4 % (11.5-14.5) 02/24/18 05:00 Plt Count 411 10^3/uL (120.0-450.0) 02/24/18 05:00 MPV 10.1 fl (7.0-11.0) 02/24/18 05:00 Gran % 66.3 % (50.0-68.0) 02/24/18 05:00 Lymph % (Auto) 24.3 % (22.0-35.0) 02/24/18 05:00 [place] % (Auto) 8.6 % (1.0-6.0) H 02/24/18 05:00 Eos % (Auto) 0.7 % (1.5-5.0) L 02/24/18 05:00 Baso % (Auto) 0.1 % (0.0-3.0) 02/24/18 05:00 Gran # 8.07 (1.4-6.5) H 02/24/18 05:00 Lymph # (Auto) 3.0 (1.2-3.4) 02/24/18 05:00 [place] # (Auto) 1.0 (0.1-0.6) H 02/24/18 05:00 Eos # (Auto) 0.1 (0.0-0.7) 02/24/18 05:00 Baso # (Auto) 0.01 K/mm3 (0.0-2.0) 02/24/18 05:00 PT 10.5 SECONDS (9.4-12.5) 02/23/18 19:15 INR 0.92 (0.93-1.08) L 02/23/18 19:15 APTT 27.9 Seconds (25.1-36.5) 02/23/18 19:15 Sodium 139 mmol/L (132-148) 02/24/18 05:00 Potassium 3.7 mmol/L (3.6-5.0) 02/24/18 05:00 Chloride 104 mmol/L (98-107) 02/24/18 05:00 Carbon Dioxide 27 mmol/L (21-33) 02/24/18 05:00 Anion Gap 12 (10-20) 02/24/18 05:00 BUN 12 mg/dL (7-21) 02/24/18 05:00 Creatinine 0.6 mg/dl (0.7-1.2) L 02/24/18 05:00 Est GFR ( Amer) > 60 02/24/18 05:00 Est GFR (Non-Af Amer) > 60 02/24/18 05:00 Random Glucose 111 mg/dL (70-110) H 02/24/18 05:00 Hemoglobin A1c 5.5 % (4.2-6.5) 02/24/18 05:00 Calcium 9.3 mg/dL (8.4-10.5) 02/24/18 05:00 Phosphorus 4.2 mg/dL (2.5-4.5) 02/24/18 05:00 Magnesium 2.3 mg/dL (1.7-2.2) H 02/24/18 05:00 Total Bilirubin 0.4 mg/dL (0.2-1.3) 02/24/18 05:00 AST 27 U/L (14-36) 02/24/18 05:00 ALT 29 U/L (7-56) 02/24/18 05:00 Alkaline Phosphatase 61 U/L (38-126) 02/24/18 05:00 Lactate Dehydrogenase 281 U/L (333-699) L 02/23/18 19:15 Total Creatine Kinase 38 U/L (35-230) 02/23/18 19:15 Troponin I < 0.01 ng/mL 02/24/18 11:00 Total Protein 6.5 g/dL (5.8-8.3) 02/24/18 05:00 Albumin 3.8 g/dL (3.0-4.8) 02/24/18 05:00 Globulin 2.8 gm/dL 02/24/18 05:00 Albumin/Globulin Ratio 1.4 (1.1-1.8) 02/24/18 05:00 Triglycerides 107 mg/dL (35-160) 02/24/18 02:55 Cholesterol 237 mg/dL (130-200) H 02/24/18 02:55 LDL Cholesterol Direct 149 mg/dL (0-129) H 02/24/18 02:55 HDL Cholesterol 61 mg/dL (29-60) H 02/24/18 02:55 Free T4 0.95 ng/dL (0.78-2.19) 02/24/18 05:00 TSH 3rd Generation 0.54 mIU/mL (0.46-4.68) 02/24/18 05:00 Urine Color Yellow (YELLOW) 02/23/18 18:48 Urine Appearance Clear (CLEAR) 02/23/18 18:48 Urine pH 6.0 (4.7-8.0) 02/23/18 18:48 Ur Specific [place] <= 1.005 (1.005-1.035) 02/23/18 18:48 Urine Protein Negative mg/dL (<30 mg/dL) 02/23/18 18:48 Urine Glucose (UA) Negative mg/dL (NEGATIVE) 02/23/18 18:48 Urine Ketones Negative mg/dL (NEGATIVE) 02/23/18 18:48 Urine Blood Negative (NEGATIVE) 02/23/18 18:48 Urine Nitrate Negative (NEGATIVE) 02/23/18 18:48 Urine Bilirubin Negative (NEGATIVE) 02/23/18 18:48 Urine Urobilinogen 0.2 E.U./dL (<1 E.U./dL) 02/23/18 18:48 Ur Leukocyte Esterase Negative [place]/uL (NEGATIVE) 02/23/18 18:48 Urine HCG, Qual Negative (NEGATIVE) 02/23/18 18:48 Urine Opiates Screen Negative (NEGATIVE) 02/23/18 21:10 Urine Methadone Screen Negative (NEGATIVE) 02/23/18 21:10 Ur Barbiturates Screen Negative (NEGATIVE) 02/23/18 21:10 Ur Phencyclidine Scrn Negative (NEGATIVE) 02/23/18 21:10 Ur Amphetamines Screen Negative (NEGATIVE) 02/23/18 21:10 U Benzodiazepines Scrn Negative (NEGATIVE) 02/23/18 21:10 U Oth Cocaine Metabols Negative (NEGATIVE) 02/23/18 21:10 U Cannabinoids Screen Negative (NEGATIVE) 02/23/18 21:10 Attending/Attestation - Attestation I have personally seen and examined this patient.: Yes I have fully participated in the care of the patient.: Yes I have reviewed all pertinent clinical information, including history, physical exam and plan: Yes Notes (Text): 02/26/18 14:18 Attending note: Patient seen and examined with resident. patient is a 37 year old female admitted with chest pain. she has PMH of fibromyalgia. pituatiry tumor. currently ekg, cardiac enzyme x3 negative. cardiology consult appreciated. Patient had recent stress test which was negative as per patient. patient will be discharged home with close follow up PMD DR. Laboy. 02/26/18 14:24
[2018-03-02] MEDS ORDERED: CABERGOLINE 0.5 MG PO SCH (10:00)
== END 2018-02-24 17:06 | disposition home or self-care (01) ==
LOC: ED 16:37 → ERH 20:21 → 3RNO 23:23
PROVIDERS: ADMIT Internal Medicine; ATTEND Internal Medicine
DX: R07.89 Other chest pain (principal); F41.9 Anxiety disorder, unspecified; R00.2 Palpitations; D35.2 Benign neoplasm of pituitary gland; I10 Essential (primary) hypertension; M50.30 Other cervical disc degeneration, unspecified cervical region; M79.7 Fibromyalgia; J45.909 Unspecified asthma, uncomplicated; G47.30 Sleep apnea, unspecified; R53.83 Other fatigue; D72.829 Elevated white blood cell count, unspecified; Z88.5 Allergy status to narcotic agent; Z79.82 Long term (current) use of aspirin; Z82.49 Family history of ischemic heart disease and other diseases of the circulatory system
CPT/HCPCS: 36415; 71045; 80053; 80061; 80324; 80345; 80346; 80349; 80353; 80358; 80361; 81003; 82550; 83036; 83615; 83735; 83992; 84100; 84439; 84443; 84484; 84703; 85025; 85610; 85730; 93005; 99285; G0378; J7030